=== PATIENT | male | born 1950 | race Caucasian/White ===

== ENCOUNTER 2018-01-24 14:20 | Emergency (ER) | payer BC, MEDICARE ==
[2018-01-24] MEDS ORDERED: ACETAMINOPHEN TAB 500 MG TAB PO STA (14:48)
[2018-01-24] MEDS ORDERED: SODIUM CHLORIDE 0.9% 1,000 ML IV SCH (15:00)
[2018-01-24 15:37] LABS: Basophils % (A) 0 %; Eosinophils # (A) 0.1 k/uL (0-0.7); Eosinophils % (A) 1 %; HCT 41.8 % (39.0-53.0); HGB 14.1 gm/dL (13.0-17.5); Lymphocytes # (A) 0.6 k/uL (1.0-4.8); Lymphocytes % (A) 7 %; MCH 29.8 pg (25.0-35.0); MCHC 33.8 g/dL (31.0-37.0); MCV 88.3 fL (80.0-100.0); Mean Platelet Volume 6.8; Monocytes # (A) 0.4 k/uL (0-1.0); Monocytes % (A) 4 %; Neutrophils # (A) 7.3 k/uL (1.3-7.7); Neutrophils % (A) 86 %; Platelet Count 104 k/uL (150-450); RBC 4.73 m/uL (4.30-5.90); RDW 12.5 % (11.5-15.5); WBC 8.4 k/uL (3.8-10.6)
[2018-01-24 15:55] LABS: INR 1.2 (<1.2); Partial Thromboplastin Time 23.3 sec (22.0-30.0); Prothrombin Time 11.5 sec (9.0-12.0)
[2018-01-24] MEDS ORDERED: cefTRIAXone IN SWFI 1,000 MG/10 ML SYRINGE IVP STA (15:55)
[2018-01-24 16:06] LABS: ALT 43 U/L (21-72); AST 23 U/L (17-59); Albumin 3.6 g/dL (3.5-5.0); Alkaline Phosphatase 61 U/L (38-126); Anion Gap 8 mmol/L; Blood Urea Nitrogen 23 mg/dL (9-20); Calcium 8.7 mg/dL (8.4-10.2); Carbon Dioxide 22 mmol/L (22-30); Chloride 107 mmol/L (98-107); Glucose 107 mg/dL (74-99); Sodium 137 mmol/L (137-145); Total Bilirubin 0.8 mg/dL (0.2-1.3); Total Protein 6.2 g/dL (6.3-8.2)
[2018-01-24] MEDS: SODIUM CHLORIDE 0.9% 500 ML IV SCH (16:20)
[2018-01-24] MEDS ORDERED: MORPHINE SULFATE 4 MG/ML SYRINGE IVP STA (16:29)
[2018-01-24 16:48] LABS: Amorphous Sediment,Urine Rare /hpf; Appearance,Urine Cloudy (Clear); Bilirubin,Urine Negative (Negative); Blood,Urine Small (Negative); Color,Urine Yellow; Glucose,Urine (UA) Negative (Negative); Granular Casts,Urine 4 /lpf (0); Ketones,Urine 1+ (Negative); Leukocyte Esterase,Urine Large (Negative); Mucus,Urine Many /hpf; Nitrite,Urine Negative (Negative); PH, Urine 5.5 (5.0-8.0); Protein,Urine 2+ (Negative); Specific Gravity,Urine 1.029 (1.001-1.035); Squamous Epithelial Cell,Urine <1 /hpf (0-4); WBC,Urine 61 /hpf (0-5)
[2018-01-24] MEDS ORDERED: KETOROLAC 30 MG/ML 1 ML VIAL IVP STA (17:22)
--- NOTE | 2018-01-24 17:22 | ED ---
General Adult HPI - General Chief complaint: Recheck/Abnormal Lab/Rx Stated complaint: Urogenital Time Seen by Provider: 01/24/18 14:44 Source: patient Mode of arrival: ambulatory Limitations: no limitations - History of Present Illness Initial comments: Tatiana starr is a 67-year-old male with no significant past medical history presents to the emergency department today for evaluation of fever, fatigue and urinary tract infection. Patient reports that on he began feeling unwell, he had a subjective fever and generalized fatigue. He reports that he came home from work and slept all evening and all night. On Friday he called in sick to work and slept throughout the day on Friday night his convinced him to seek care at an urgent care where he was diagnosed with a urinary tract infection and prescribed Macrobid. Patient has taken 2 doses of Macrobid but continues to feel worse fatigue and has noted that his fever is higher today than yesterday. At that time his convinced him to come to the ER for further evaluation. Patient has no history of urinary tract infection past. He 's never seen a urologist never had any urologic procedures in the past. - Related Data Home Medications Medication Instructions Recorded Confirmed Aspirin EC [Ecotrin Low Dose] 81 mg PO HS 01/24/18 01/24/18 Metoprolol Succinate (ER) [Toprol 25 mg PO HS 01/24/18 01/24/18 XL] Niacin [Niacin ER] 500 mg PO HS 01/24/18 01/24/18 Previous Rx's Medication Instructions Recorded Sulfamethox-Tmp 800-160Mg [Bactrim 1 tab PO Q12HR #14 tab 01/24/18 DS 800-160 mg] Allergies Allergy/AdvReac Type Severity Reaction Status Date / Time codeine Allergy Itching Verified 01/24/18 16:59 Review of Systems ROS Statement: Those systems with pertinent positive or pertinent negative responses have been documented in the HPI. ROS Other: All systems not noted in ROS Statement are negative. Constitutional: Reports: fever, chills Eyes: Denies: eye pain ENT: Denies: throat pain Respiratory: Denies: cough, dyspnea Cardiovascular: Denies: chest pain, palpitations Endocrine: Reports: fatigue Gastrointestinal: Denies: abdominal pain, nausea, vomiting, diarrhea, constipation Past Medical History Past Medical History: Atrial Fibrillation, Hyperlipidemia, Hypertension History of Any Multi-Drug Resistant Organisms: None Reported Past Surgical History: Tonsillectomy Additional Past Surgical History / Comment(s): varicose vein Past Psychological History: No Psychological Hx Reported Smoking Status: Former smoker Past Alcohol Use History: None Reported Past Drug Use History: None Reported General Exam Limitations: no limitations Course Vital Signs 01/24/18 01/24/18 01/24/18 14:23 16:25 18:37 Temperature 101.0 F H 99.3 F Pulse Rate 95 78 71 Respiratory 18 18 16 Rate Blood Pressure 109/73 105/54 115/63 O2 Sat by Pulse 96 96 97 Oximetry - Reevaluation(s) Reevaluation #1: Patient was reevaluated, reports feeling better after IV fluids and Rocephin. Heart rate has improved to the mid 60s. Patient remains febrile with a temperature of 100.4 orally. Toradol was given. 01/24/18 17:41 Medical Decision Making - Medical Decision Making Patient seen and evaluated, history of obtained from patient and Previously healthy patient diagnosed urinary tract infection yesterday, prescribed Macrobid. Today he is febrile, tachycardic and feeling fatigued and generalized body aches Vital signs were reviewed, patient febrile, relative tachycardia with a heart rate of 95 but the patient is on Lopressor. At this time I will pursue a sepsis workup Labs were unremarkable, no leukocytosis, no acute kidney injury, urinalysis is consistent with a urinary tract infection IV Rocephin was ordered Tylenol was given for fever Patient was reevaluated after IV fluids, Rocephin and Tylenol. Patient reports that he significantly more comfortable at this time. He does feel that antibiotics are working. His heart rate has improved. His fever has improved significantly. He does still have some mild bilateral flank pain. Patient does have normal kidney functions of Toradol was ordered. Patient was reevaluated shortly after the Toradol was administered. He reports feeling much better at this time, I discussed with the patient and his at bedside option for admitting the patient for urinary tract infection versus discharge home with oral antibiotics. He do not feel Macrobid was an appropriate choice and that antibiotics will be changed. Patient did receive Rocephin in the ER and will be discharged home on Bactrim. She expressed concern that his mother developed recurrent urinary tract infections eventually resulting in sepsis and her . Patient does have a lot of anxiety regarding the diagnosis of urinary tract infection. I advised the patient that at this time a single urinary tract infection and improvement of his vital signs after fluids is very reassuring sign. I can't admit the patient to the hospital if he feels further workup is necessary. Patient expresses concern that being in the hospital just expose him 2 more germs. Patient would prefer discharge home. I did advise the patient that there was some hematuria noted on his urinalysis, advised that he needs to follow up with his primary care physician for repeat urinalysis and if he has persistent hematuria he needs evaluation by urology. Patient does have a distant history of smoking, advised him that smoking is a risk factor for development of bladder cancer though with this being a single episode of hematuria in the setting of a urinary tract infection bladder cancers not my high suspicion. Patient's breast understanding of this. All questions pertaining to care were answered best my ability the patient was discharged home - Lab Data Result diagrams: 01/24/18 15:23 01/24/18 15:23 Lab Results 01/24/18 01/24/18 01/24/18 Range/Units 15:23 15:23 15:23 WBC 8.4 (3.8-10.6) k/uL RBC 4.73 (4.30-5.90) m/uL Hgb 14.1 (13.0-17.5) gm/dL Hct 41.8 (39.0-53.0) % MCV 88.3 (80.0-100.0) fL MCH 29.8 (25.0-35.0) pg MCHC 33.8 (31.0-37.0) g/dL RDW 12.5 (11.5-15.5) % Plt Count 104 L (150-450) k/uL Neutrophils % 86 % Lymphocytes % 7 % Monocytes % 4 % Eosinophils % 1 % Basophils % 0 % Neutrophils # 7.3 (1.3-7.7) k/uL Lymphocytes # 0.6 L (1.0-4.8) k/uL Monocytes # 0.4 (0-1.0) k/uL Eosinophils # 0.1 (0-0.7) k/uL Basophils # 0.0 (0-0.2) k/uL PT (9.0-12.0) sec INR (<1.2) APTT (22.0-30.0) sec Sodium 137 (137-145) mmol/L Potassium 4.0 (3.5-5.1) mmol/L Chloride 107 (98-107) mmol/L Carbon Dioxide 22 (22-30) mmol/L Anion Gap 8 mmol/L BUN 23 H (9-20) mg/dL Creatinine 0.80 (0.66-1.25) mg/dL Est GFR (CKD-EPI)AfAm >90 (>60 ml/min/1.73 sqM) Est GFR (CKD-EPI)NonAf >90 (>60 ml/min/1.73 sqM) Glucose 107 H (74-99) mg/dL Plasma Lactic Acid [place] 0.6 L (0.7-2.0) mmol/L Calcium 8.7 (8.4-10.2) mg/dL Total Bilirubin 0.8 (0.2-1.3) mg/dL AST 23 (17-59) U/L ALT 43 (21-72) U/L Alkaline Phosphatase 61 (38-126) U/L Total Protein 6.2 L (6.3-8.2) g/dL Albumin 3.6 (3.5-5.0) g/dL Urine Color Urine Appearance (Clear) Urine pH (5.0-8.0) Ur Specific [place] (1.001-1.035) Urine Protein (Negative) Urine Glucose (UA) (Negative) Urine Ketones (Negative) Urine Blood (Negative) Urine Nitrite (Negative) Urine Bilirubin (Negative) Urine Urobilinogen (<2.0) mg/dL Ur Leukocyte Esterase (Negative) Urine WBC (0-5) /hpf Ur Squamous Epith Cells (0-4) /hpf Amorphous Sediment (None) /hpf Granular Casts (0) /lpf Urine Mucus (None) /hpf 01/24/18 01/24/18 Range/Units 15:23 16:20 WBC (3.8-10.6) k/uL RBC (4.30-5.90) m/uL Hgb (13.0-17.5) gm/dL Hct (39.0-53.0) % MCV (80.0-100.0) fL MCH (25.0-35.0) pg MCHC (31.0-37.0) g/dL RDW (11.5-15.5) % Plt Count (150-450) k/uL Neutrophils % % Lymphocytes % % Monocytes % % Eosinophils % % Basophils % % Neutrophils # (1.3-7.7) k/uL Lymphocytes # (1.0-4.8) k/uL Monocytes # (0-1.0) k/uL Eosinophils # (0-0.7) k/uL Basophils # (0-0.2) k/uL PT 11.5 (9.0-12.0) sec INR 1.2 H (<1.2) APTT 23.3 (22.0-30.0) sec Sodium (137-145) mmol/L Potassium (3.5-5.1) mmol/L Chloride (98-107) mmol/L Carbon Dioxide (22-30) mmol/L Anion Gap mmol/L BUN (9-20) mg/dL Creatinine (0.66-1.25) mg/dL Est GFR (CKD-EPI)AfAm (>60 ml/min/1.73 sqM) Est GFR (CKD-EPI)NonAf (>60 ml/min/1.73 sqM) Glucose (74-99) mg/dL Plasma Lactic Acid [place] (0.7-2.0) mmol/L Calcium (8.4-10.2) mg/dL Total Bilirubin (0.2-1.3) mg/dL AST (17-59) U/L ALT (21-72) U/L Alkaline Phosphatase (38-126) U/L Total Protein (6.3-8.2) g/dL Albumin (3.5-5.0) g/dL Urine Color Yellow Urine Appearance Cloudy (Clear) Urine pH 5.5 (5.0-8.0) Ur Specific [place] 1.029 (1.001-1.035) Urine Protein 2+ H (Negative) Urine Glucose (UA) Negative (Negative) Urine Ketones 1+ H (Negative) Urine Blood Small H (Negative) Urine Nitrite Negative (Negative) Urine Bilirubin Negative (Negative) Urine Urobilinogen 2.0 (<2.0) mg/dL Ur Leukocyte Esterase Large H (Negative) Urine WBC 61 H (0-5) /hpf Ur Squamous Epith Cells <1 (0-4) /hpf Amorphous Sediment Rare H (None) /hpf Granular Casts 4 (0) /lpf Urine Mucus Many H (None) /hpf Disposition Clinical Impression: UTI (urinary tract infection) Disposition: HOME SELF-CARE Condition: Good Instructions: Urinary Tract Infection in Men (ED) Prescriptions: Sulfamethox-Tmp 800-160Mg [Bactrim DS 800-160 mg] 1 tab PO Q12HR #14 tab Is patient prescribed a controlled substance at d/c from ED?: No Referrals: Jasiel Steiner DO [Primary Care Provider] - 1-2 days Time of Disposition: 18:21
[2018-01-24 18:39] VITALS: BP 115/63; PULSE 71; RESP 16; TEMP 99.3
== END 2018-01-24 18:39 | disposition home or self-care (01) ==
LOC: EC 14:20
DX: N39.0 Urinary tract infection, site not specified (principal); R53.83 Other fatigue; R00.0 Tachycardia, unspecified; I10 Essential (primary) hypertension; Z87.891 Personal history of nicotine dependence; Z79.82 Long term (current) use of aspirin; Z79.899 Other long term (current) drug therapy; Z88.5 Allergy status to narcotic agent
CPT/HCPCS: 36415; 93005; 80053; 83605; 85025; 85610; 85730; 81001; 87040; 87086; 99283; 96374; 96375; 96361 ×2; J0696; J1885

== ENCOUNTER → 2018-08-07 | Outpatient (CLI) | payer BC ==
--- NOTE | 2018-08-07 08:01 | MR ---
EXAMINATION TYPE: MR lumbar spine wo con DATE OF EXAM: 08/07/2018 COMPARISON: Lumbar spine x-ray June 12, 2016. HISTORY: Right-sided radicular pain per order. Low back pain for 3 months into right buttocks per pat ient. TECHNIQUE: Multiplanar, multisequence imaging of the lumbar spine is performed without IV contrast. FINDINGS: Sagittal images of the lumbar spine show vertebral body heights and alignment to appear sat isfactory. Multilevel disc desiccation is seen. There is mild multilevel disc space narrowing. No fraire spicious posterior disc herniations are present. The conus medullaris is normal in position and signa l ending at superior L1 level. The bone marrow signal intensity is within normal limits. Mild multil evel anterior spurring is seen. Axial images beginning at labeled T12-L1 level which is felt within normal limits. Axial images at L1 -L2, L2-L3, and L3-L4 levels are all felt within normal limits. Axial images at the L4-L5 level show mild facet degenerative changes bilaterally. There is mild broad disc bulge with tiny central disc protrusion minimally effacing anterior thecal sac, bilateral neura l foramina are patent. Axial images at the L5-S1 level show mild to moderate facet degenerative changes bilaterally. There i s left lateral spurring felt present. Spinal canal is preserved. Bilateral neural foramina are patent . There is partial visualization of a round T2 hyperintense at least 1.3 cm lesion left kidney axial im age 29 favoring simple cyst. Additional smaller central parapelvic cysts are felt present left kidney for reference axial image 22. IMPRESSION: Some mild multilevel degenerative changes in the lumbar spine as detailed above. No suspi cious focal disc herniation seen to account for patient's right-sided radiculopathy type symptoms.
== END | disposition home or self-care (01) ==
LOC: RADMRIMAIN 06:02
PROVIDERS: ATTEND Internal Medicine Cardiovascular Disease
DX: M47.26 Other spondylosis with radiculopathy, lumbar region (principal)
CPT/HCPCS: 72148

== ENCOUNTER → 2018-09-15 | Outpatient (CLI) | payer BC | LOC: LABWHC1 10:04 | PROVIDERS: ATTEND Urology | DX: R97.21 Rising PSA following treatment for malignant neoplasm of prostate (principal) | CPT/HCPCS: 36415; 84153 ==

== ENCOUNTER 2020-09-24 22:19 | Emergency (ER) | payer MEDICARE, BC ==
[2020-09-24] MEDS ORDERED: SODIUM CHLORIDE 0.9% 1,000 ML IV STA (22:30)
[2020-09-24] MEDS ORDERED: MORPHINE SULFATE 4 MG/ML SYRINGE IV STA (22:30)
--- NOTE | 2020-09-24 22:32 | ED ---
Chest Pain HPI - General Chief Complaint: Chest Pain Stated Complaint: chest pain, upper back pain Time Seen by Provider: 09/24/20 22:30 Source: patient Mode of arrival: wheelchair Limitations: no limitations - Related Data Home Medications Medication Instructions Recorded Confirmed Aspirin EC [Ecotrin Low Dose] 81 mg PO HS 01/24/18 01/24/18 Metoprolol Succinate (ER) [Toprol 25 mg PO HS 01/24/18 01/24/18 XL] Niacin [Niacin ER] 500 mg PO HS 01/24/18 01/24/18 Previous Rx's Medication Instructions Recorded Sulfamethox-Tmp 800-160Mg [Bactrim 1 tab PO Q12HR #14 tab 01/24/18 DS 800-160 mg] Allergies Allergy/AdvReac Type Severity Reaction Status Date / Time codeine Allergy Itching Verified 09/24/20 22:28 Review of Systems ROS Statement: Those systems with pertinent positive or pertinent negative responses have been documented in the HPI. ROS Other: All systems not noted in ROS Statement are negative. EKG Findings - EKG Comments: EKG Findings:: EKG shows sinus rhythm 64, ID [id number] QRS 110 QTc 435 Past Medical History Past Medical History: Atrial Fibrillation, Hyperlipidemia, Hypertension History of Any Multi-Drug Resistant Organisms: None Reported Past Surgical History: Tonsillectomy Additional Past Surgical History / Comment(s): varicose vein Past Psychological History: No Psychological Hx Reported Smoking Status: Former smoker Past Alcohol Use History: None Reported Past Drug Use History: None Reported General Exam Limitations: no limitations Course Vital Signs 09/24/20 09/24/20 09/25/20 22:25 22:30 00:10 Temperature 98.0 F Pulse Rate 72 72 Pulse Rate [ 74 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
[2020-09-24 23:34] LABS: Basophils % (A) 1 %; Eosinophils # (A) 0.2 k/uL (0-0.7); Eosinophils % (A) 3 %; HCT 41.8 % (39.0-53.0); HGB 14.5 gm/dL (13.0-17.5); Lymphocytes # (A) 1.5 k/uL (1.0-4.8); Lymphocytes % (A) 26 %; MCH 30.3 pg (25.0-35.0); MCHC 34.6 g/dL (31.0-37.0); MCV 87.6 fL (80.0-100.0); Monocytes # (A) 0.4 k/uL (0-1.0); Monocytes % (A) 8 %; Neutrophils # (A) 3.5 k/uL (1.3-7.7); Neutrophils % (A) 61 %; Platelet Count 141 k/uL (150-450); RBC 4.77 m/uL (4.30-5.90); RDW 13.1 % (11.5-15.5); WBC 5.8 k/uL (3.8-10.6)
[2020-09-24 23:51] LABS: ALT 26 U/L (4-49); AST 29 U/L (17-59); African American GFR (CKD) >90 (>60 ml/min/1.73 sqM); Albumin 3.9 g/dL (3.5-5.0); Alkaline Phosphatase 60 U/L (38-126); Anion Gap 8 mmol/L; Blood Urea Nitrogen 22 mg/dL (9-20); Carbon Dioxide 24 mmol/L (22-30); Chloride 105 mmol/L (98-107); Creatine Kinase 258 U/L (55-170); Glucose 159 mg/dL (74-99); Lipase 69 U/L (23-300); Magnesium 1.7 mg/dL (1.6-2.3); Non-African American GFR(CKD) >90 (>60 ml/min/1.73 sqM); Potassium 3.8 mmol/L (3.5-5.1); Sodium 137 mmol/L (137-145); Total Bilirubin 0.4 mg/dL (0.2-1.3); Total Protein 6.4 g/dL (6.3-8.2)
[2020-09-25 00:04] LABS: D-Dimer 0.31 mg/L FEU (<0.60); Prothrombin Time 10.4 sec (9.0-12.0)
[2020-09-25 00:14] LABS: Partial Thromboplastin Time 21.8 sec (22.0-30.0)
--- NOTE | 2020-09-25 00:33 | CT ---
EXAMINATION TYPE: CT angio chest DATE OF EXAM: 09/25/2020 COMPARISON: None HISTORY: Chest Pain, R/O PE CT DLP: 865.70 mGycm Automated exposure control for dose reduction was used. CONTRAST: Performed with IV Contrast, patient injected with 100 mL of Isovue 370. There are 3-D post processed images. The lungs are clear of consolidation. There is no evidence of a pulmonary mass. There is no pleural e ffusion. There is no pericardial effusion. Heart size is normal. There is no mediastinal adenopathy. There are no hilar masses. Thoracic aorta is intact. There is no aneurysm or dissection. There is normal contrast opacification of the pulmonary arteries. There are n o filling defects. The bony thorax is intact. There is no compression fracture. Sternum is intact. Ga llbladder is slightly enlarged and measures 4.7 cm. IMPRESSION: No evidence of pulmonary embolism. Large gallbladder that could relate to cholecystitis or gallbladder dysfunction.
[2020-09-25 01:12] VITALS: BP 137/90; PULSE 63; RESP 18; TEMP 99.1
== END 2020-09-25 01:11 | disposition other institution (70) ==
LOC: EC 22:19
DX: R07.89 Other chest pain (principal); K80.50 Calculus of bile duct without cholangitis or cholecystitis without obstruction
CPT/HCPCS: 36415; 93005; 85379; 83880; 80053; 82550; 83690; 83735; 84484; 85025; 85610; 85730; 71275; 99285; Q9967

== ENCOUNTER 2020-11-19 10:54 | Inpatient (IN) | payer MEDICARE, BC ==
[2020-11-19] MEDS ORDERED: SODIUM CHLORIDE 0.9% 500 ML 500 ML IV STA (11:13)
[2020-11-19] MEDS ORDERED: ONDANSETRON 4 MG/2 ML VIAL IVP STA (11:13)
[2020-11-19] MEDS ORDERED: KETOROLAC 15 MG/ML 1 ML VIAL IVP STA (11:13)
[2020-11-19] MEDS ORDERED: SODIUM CHLORIDE 0.9% 1,000 ML IV STA (11:13)
[2020-11-19] MEDS ORDERED: ACETAMINOPHEN TAB 325 MG TAB PO STA (11:14)
--- NOTE | 2020-11-19 11:29 | ED ---
Abdominal Pain HPI - General Source: patient, RN notes reviewed Mode of arrival: ambulatory Limitations: no limitations <Joe Hernandez - Last Filed: 11/19/20 11:27> <Richi Gonsalves - Last Filed: 11/19/20 14:04> - General Chief Complaint: Abdominal Pain Stated Complaint: Back & Abd pain Time Seen by Provider: 11/19/20 11:04 - History of Present Illness Initial Comments: 70-year-old male presents emergency Department with chief complaint of upper abdominal pain. Patient states that pain started on Friday and initially that was given result states that hasn't states it's worsen. He does admit to slight nausea no vomiting no chest pain or shortness breath denies any prior abdominal surgeries no dysuria no hematuria denies any change in bowel habits. Patient reports no fever at home for current temp 100.8. Patient states his here proximal one month ago with some her symptoms but states when he shortly ER the pain resolves so he figured he would wait this out. (Joe Hernandez) - Related Data Home Medications Medication Instructions Recorded Confirmed Aspirin EC [Ecotrin Low Dose] 81 mg PO HS 01/24/18 11/19/20 Atorvastatin Calcium [Lipitor] 10 mg PO HS 11/19/20 11/19/20 Meloxicam [Mobic] 15 mg PO HS 11/19/20 11/19/20 Niacin [Niaspan] 500 mg PO HS 11/19/20 11/19/20 Allergies Allergy/AdvReac Type Severity Reaction Status Date / Time codeine Allergy Itching Verified 11/19/20 13:54 Review of Systems ROS Other: All systems not noted in ROS Statement are negative. <Joe Hernandez - Last Filed: 11/19/20 11:27> ROS Other: All systems not noted in ROS Statement are negative. <Richi Gonsalves - Last Filed: 11/19/20 14:04> ROS Statement: Those systems with pertinent positive or pertinent negative responses have been documented in the HPI. Past Medical History Past Medical History: Atrial Fibrillation, Hyperlipidemia, Hypertension Additional Past Medical History / Comment(s): prostate cancer History of Any Multi-Drug Resistant Organisms: None Reported Past Surgical History: Tonsillectomy Additional Past Surgical History / Comment(s): varicose vein Past Psychological History: No Psychological Hx Reported Smoking Status: Former smoker Past Alcohol Use History: None Reported Past Drug Use History: None Reported <Joe Hernandez - Last Filed: 11/19/20 11:27> General Exam Limitations: no limitations General appearance: alert, in no apparent distress Head exam: Present: atraumatic, normocephalic, normal inspection Respiratory exam: Present: normal lung sounds bilaterally. Absent: respiratory distress, wheezes, rales, rhonchi, stridor Cardiovascular Exam: Present: regular rate, normal rhythm, normal heart sounds. Absent: systolic murmur, diastolic murmur, rubs, gallop, clicks GI/Abdominal exam: Present: soft, tenderness (Upper abdominal epigastric to right-sided), normal bowel sounds. Absent: distended, guarding, rebound, rigid Back exam: Absent: CVA tenderness (R), CVA tenderness (L) Neurological exam: Present: alert Skin exam: Present: warm, dry, intact, normal color. Absent: rash <Joe Hernandez Rolando - Last Filed: 11/19/20 11:27> Course Vital Signs 11/19/20 11/19/20 11/19/20 10:58 11:47 13:36 Temperature 100.8 F H 99.7 F H Pulse Rate 89 77 84 Respiratory 18 18 18 Rate Blood Pressure 134/72 125/72 117/66 O2 Sat by Pulse 96 97 97 Oximetry Medical Decision Making - Lab Data Result diagrams: 11/19/20 11:23 11/19/20 11:23 <Richi Gonsalves - Last Filed: 11/19/20 14:04> - Medical Decision Making Certain 62-year-old male with a recurrent episode of epigastric pain low-grade fever, leukocytosis. Ultrasound performed which shows a distended gallbladder with common wall 0.3 cm. There is concern for possible cholecystitis although there is no gallstones, no transaminitis. Patient has white blood cell count with shift. He has low-grade fever. He is given a dose of antibiotics in the emergency department. Case discussed both with the admitting physician and Dr. Malik covering for general surgery. HIDA scan has been ordered. (Richi Gonsalves) - Lab Data Lab Results 11/19/20 11/19/20 11/19/20 Range/Units 11:23 11:23 11:23 WBC 11.3 H (3.8-10.6) k/uL RBC 4.88 (4.30-5.90) m/uL Hgb 15.2 (13.0-17.5) gm/dL Hct 42.8 (39.0-53.0) % MCV 87.6 (80.0-100.0) fL MCH 31.2 (25.0-35.0) pg MCHC 35.6 (31.0-37.0) g/dL RDW 12.6 (11.5-15.5) % Plt Count 146 L (150-450) k/uL MPV 7.4 Neutrophils % 81 % Lymphocytes % 9 % Monocytes % 8 % Eosinophils % 1 % Basophils % 0 % Neutrophils # 9.2 H (1.3-7.7) k/uL Lymphocytes # 1.0 (1.0-4.8) k/uL Monocytes # 0.9 (0-1.0) k/uL Eosinophils # 0.1 (0-0.7) k/uL Basophils # 0.0 (0-0.2) k/uL Sodium 138 (137-145) mmol/L Potassium 4.2 (3.5-5.1) mmol/L Chloride 106 (98-107) mmol/L Carbon Dioxide 24 (22-30) mmol/L Anion Gap 8 mmol/L BUN 16 (9-20) mg/dL Creatinine 0.68 (0.66-1.25) mg/dL Est GFR (CKD-EPI)AfAm >90 (>60 ml/min/1.73 sqM) Est GFR (CKD-EPI)NonAf >90 (>60 ml/min/1.73 sqM) Glucose 126 H (74-99) mg/dL Plasma Lactic Acid [place] (0.7-2.0) mmol/L Calcium 9.0 (8.4-10.2) mg/dL Total Bilirubin 0.8 (0.2-1.3) mg/dL AST 27 (17-59) U/L ALT 25 (4-49) U/L Alkaline Phosphatase 70 (38-126) U/L Total Protein 6.9 (6.3-8.2) g/dL Albumin 4.2 (3.5-5.0) g/dL Amylase 31 (30-110) U/L Lipase 35 (23-300) U/L Urine Color Yellow Urine Appearance Clear (Clear) Urine pH 6.5 (5.0-8.0) Ur Specific [place] 1.025 (1.001-1.035) Urine Protein Trace H (Negative) Urine Glucose (UA) Negative (Negative) Urine Ketones Negative (Negative) Urine Blood Trace H (Negative) Urine Nitrite Negative (Negative) Urine Bilirubin Negative (Negative) Urine Urobilinogen 4.0 (<2.0) mg/dL Ur Leukocyte Esterase Negative (Negative) Urine RBC 1 (0-5) /hpf Urine WBC 1 (0-5) /hpf Ur Squamous Epith Cells <1 (0-4) /hpf Hyaline Casts 1 (0-2) /lpf Urine Mucus Occasional H (None) /hpf 11/19/20 Range/Units 11:23 WBC (3.8-10.6) k/uL RBC (4.30-5.90) m/uL Hgb (13.0-17.5) gm/dL Hct (39.0-53.0) % MCV (80.0-100.0) fL MCH (25.0-35.0) pg MCHC (31.0-37.0) g/dL RDW (11.5-15.5) % Plt Count (150-450) k/uL MPV Neutrophils % % Lymphocytes % % Monocytes % % Eosinophils % % Basophils % % Neutrophils # (1.3-7.7) k/uL Lymphocytes # (1.0-4.8) k/uL Monocytes # (0-1.0) k/uL Eosinophils # (0-0.7) k/uL Basophils # (0-0.2) k/uL Sodium (137-145) mmol/L Potassium (3.5-5.1) mmol/L Chloride (98-107) mmol/L Carbon Dioxide (22-30) mmol/L Anion Gap mmol/L BUN (9-20) mg/dL Creatinine (0.66-1.25) mg/dL Est GFR (CKD-EPI)AfAm (>60 ml/min/1.73 sqM) Est GFR (CKD-EPI)NonAf (>60 ml/min/1.73 sqM) Glucose (74-99) mg/dL Plasma Lactic Acid [place] 0.7 (0.7-2.0) mmol/L Calcium (8.4-10.2) mg/dL Total Bilirubin (0.2-1.3) mg/dL AST (17-59) U/L ALT (4-49) U/L Alkaline Phosphatase (38-126) U/L Total Protein (6.3-8.2) g/dL Albumin (3.5-5.0) g/dL Amylase (30-110) U/L Lipase (23-300) U/L Urine Color Urine Appearance (Clear) Urine pH (5.0-8.0) Ur Specific [place] (1.001-1.035) Urine Protein (Negative) Urine Glucose (UA) (Negative) Urine Ketones (Negative) Urine Blood (Negative) Urine Nitrite (Negative) Urine Bilirubin (Negative) Urine Urobilinogen (<2.0) mg/dL Ur Leukocyte Esterase (Negative) Urine RBC (0-5) /hpf Urine WBC (0-5) /hpf Ur Squamous Epith Cells (0-4) /hpf Hyaline Casts (0-2) /lpf Urine Mucus (None) /hpf Disposition <Joe Hernandez - Last Filed: 11/19/20 11:27> Is patient prescribed a controlled substance at d/c from ED?: No Decision to Admit Reason: Admit from EC Decision Date: 11/19/20 Decision Time: 14:04 <Richi Gonsalves - Last Filed: 11/19/20 14:04> Clinical Impression: Abdominal pain Disposition: ADMITTED IP TO THIS HOSP Condition: Stable Referrals: Denise Felder MD [Primary Care Provider] - 1-2 days
[2020-11-19 11:31] LABS: Basophils % (A) 0 %; Eosinophils # (A) 0.1 k/uL (0-0.7); Eosinophils % (A) 1 %; HCT 42.8 % (39.0-53.0); HGB 15.2 gm/dL (13.0-17.5); Lymphocytes % (A) 9 %; MCH 31.2 pg (25.0-35.0); MCHC 35.6 g/dL (31.0-37.0); MCV 87.6 fL (80.0-100.0); Mean Platelet Volume 7.4; Monocytes # (A) 0.9 k/uL (0-1.0); Monocytes % (A) 8 %; Neutrophils # (A) 9.2 k/uL (1.3-7.7); Neutrophils % (A) 81 %; Platelet Count 146 k/uL (150-450); RBC 4.88 m/uL (4.30-5.90); RDW 12.6 % (11.5-15.5); WBC 11.3 k/uL (3.8-10.6)
[2020-11-19 11:49] LABS: ALT 25 U/L (4-49); AST 27 U/L (17-59); African American GFR (CKD) >90 (>60 ml/min/1.73 sqM); Albumin 4.2 g/dL (3.5-5.0); Alkaline Phosphatase 70 U/L (38-126); Amylase 31 U/L (30-110); Anion Gap 8 mmol/L; Blood Urea Nitrogen 16 mg/dL (9-20); Carbon Dioxide 24 mmol/L (22-30); Chloride 106 mmol/L (98-107); Glucose 126 mg/dL (74-99); Lipase 35 U/L (23-300); Non-African American GFR(CKD) >90 (>60 ml/min/1.73 sqM); Potassium 4.2 mmol/L (3.5-5.1); Sodium 138 mmol/L (137-145); Total Bilirubin 0.8 mg/dL (0.2-1.3); Total Protein 6.9 g/dL (6.3-8.2)
[2020-11-19 12:03] LABS: Appearance,Urine Clear (Clear); Bilirubin,Urine Negative (Negative); Blood,Urine Trace (Negative); Color,Urine Yellow; Glucose,Urine (UA) Negative (Negative); Hyaline Casts,Urine 1 /lpf (0-2); Ketones,Urine Negative (Negative); Leukocyte Esterase,Urine Negative (Negative); Mucus,Urine Occasional /hpf; Nitrite,Urine Negative (Negative); PH, Urine 6.5 (5.0-8.0); Protein,Urine Trace (Negative); RBC,Urine 1 /hpf (0-5); Specific Gravity,Urine 1.025 (1.001-1.035); Squamous Epithelial Cell,Urine <1 /hpf (0-4); WBC,Urine 1 /hpf (0-5)
--- NOTE | 2020-11-19 12:58 | US ---
EXAMINATION TYPE: US gallbladder DATE OF EXAM: 11/19/2020 COMPARISON: CT CLINICAL HISTORY: pain. Pt states feeling gassy and epigastric pain EXAM MEASUREMENTS: Liver Length: 18.2 cm Gallbladder Wall: 0.3 cm CBD: 0.6 cm Right Kidney: 12.5 x 6.0 x 5.7 cm Large pt body habitus, very gassy Pancreas: Obscured by bowel gas Liver: Only visualized intercostally, visualized portions appeared wnl Gallbladder: Lumen clear, appeared distended, similar in prior CT, all thickness upper limits of nor mal Evidence for sonographic Santiago's sign: No CBD: wnl Right Kidney: wnl IMPRESSION: Gallbladder is distended with no obvious gallstones. Correlate clinically.
[2020-11-19] MEDS ORDERED: PIPERACILLIN-TAZOBACTAM 3.375 GM in SODIUM CHLORIDE 0.9% 100 ML IVPB STA (13:35)
[2020-11-19] MEDS ORDERED: ONDANSETRON 4 MG/2 ML VIAL IVP PRN (14:01)
[2020-11-19] MEDS ORDERED: NALOXONE 0.4 MG/ML 1 ML VIAL IV PRN (14:01)
[2020-11-19] MEDS: SODIUM CHLORIDE 0.9% 1,000 ML IV SCH ×2 (14:12→19:36)
[2020-11-19] MEDS ORDERED: ACETAMINOPHEN TAB 325 MG TAB PO PRN (17:19)
[2020-11-19] MEDS: HYDROmorphone 0.5 MG/0.5 ML SYRINGE IVP PRN (19:37)
[2020-11-20] MEDS: PIPERACILLIN-TAZOBACTAM 3.375 GM in SODIUM CHLORIDE 0.9% 100 ML IVPB SCH ×3 (10:07→23:57)
[2020-11-20] MEDS: SODIUM CHLORIDE 0.9% 1,000 ML IV SCH ×3 (10:19→22:28)
--- NOTE | 2020-11-20 11:11 | P.GSCN ---
<Tonie Howard - Last Filed: 11/20/20 10:56> History of Present Illness Consult date: 11/20/20 History of present illness: CHIEF COMPLAINT: Abdominal pain HISTORY OF PRESENT ILLNESS: This is a 70-year-old male with a known past medical history of hypertension, hyperlipidemia and a single episode of atrial fibrillation and he is not on any anticoagulation. Denies any surgical history. Patient came into the hospital with complaints of middle upper back pain and abdominal pain. He reports that it feels like there is a bubble sitting in the center of his stomach and is having back discomfort. He initially rated his pain 8 out of 10. The pain has improved since admission. Patient reports that his symptoms started on Friday evening after eating stirfry that was spicy. Symptoms continued to worsen. He had one episode like this about 2 months ago and had come in to the ER ago and told that it may have been a gallbladder attack. Patient did have a fever on admission. His T-max is 101.8. WBC elevated at 11.3. Abdominal ultrasound showing that the gallbladder is distended with no obvious gallstones. Patient denies any nausea or vomiting. He had been having chills and sweats. He denies any change in bowel habits. Patient denies any history of peptic ulcer disease. Patient has never had an EGD in the past. PAST MEDICAL HISTORY: See list. PAST SURGICAL HISTORY: See list. MEDICATIONS: See list. ALLERGIES: See list. SOCIAL HISTORY: No illicit drug use. Patient doesn't prior history of smoking and quit several years ago. Denies any alcohol use. REVIEW OF SYSTEMS: CONSTITUTIONAL: Denies fever or chills. HEENT: Denies blurred vision, vision changes, or eye pain. Denies hemoptysis CARDIOVASCULAR: Denies chest pain or pressure. RESPIRATORY: No shortness of breath. GASTROINTESTINAL: See HPI for pertinent findings HEMATOLOGIC: Denies bleeding disorders. GENITOURINARY: Denies any blood in urine or increased urinary frequency. SKIN: Denies pruitis. Denies rash. PHYSICAL EXAM: VITAL SIGNS: Reviewed GENERAL: Well-developed in no acute distress. HEENT: No sclera icterus. Extraocular movements grossly intact. Moist buccal mucosa. Head is atraumatic, normocephalic. No nasal drainage. ABDOMEN: Soft. Nondistended. Tenderness in the epigastric upper abdomen area with palpation. NEUROLOGIC: Alert and oriented. Cranial nerves II through XII grossly intact. LABORATORY DATA: Labs for today are pending. Labs from 11/19/2020 WBC 11.3 hemoglobin 15.2+146 creatinine 0.68 lactic 0.7 LFTs are normal lipase is normal Urinalysis no evidence of infection COVID-19 not detected IMAGING: Abdominal ultrasound showing that the gallbladder is distended with no obvious gallstones. ASSESSMENT: 1. Epigastric abdominal pain and mid back pain with abdominal ultrasound showing distended gallbladder PLAN: -Follow up on HIDA scan results -Computed tomography scan abdomen and pelvis with contrast ordered -Continue IV fluids -Continue IV antibiotics -Continue pain medication and antiemetics as needed -Add IV Protonix -Add DVT prophylaxis subcu heparin -Further recommendations forthcoming per surgeon Thank you for this consultation Physician Rock Worker note has been reviewed by physician. Signing provider agrees with the documented findings, assessment, and plan of care. Past Medical History Past Medical History: Atrial Fibrillation, Hyperlipidemia, Hypertension Additional Past Medical History / Comment(s): prostate cancer History of Any Multi-Drug Resistant Organisms: None Reported Past Surgical History: Tonsillectomy Additional Past Surgical History / Comment(s): varicocele Past Psychological History: No Psychological Hx Reported Smoking Status: Former smoker Past Alcohol Use History: None Reported Past Drug Use History: None Reported Medications and Allergies Home Medications Medication Instructions Recorded Confirmed Type Aspirin EC [Ecotrin Low Dose] 81 mg PO HS 01/24/18 11/19/20 History Atorvastatin Calcium [Lipitor] 10 mg PO HS 11/19/20 11/19/20 History Meloxicam [Mobic] 15 mg PO HS 11/19/20 11/19/20 History Niacin [Niaspan] 500 mg PO HS 11/19/20 11/19/20 History Allergies Allergy/AdvReac Type Severity Reaction Status Date / Time codeine Allergy Itching Verified 11/19/20 13:54 Surgical - Exam Vital Signs Temp Pulse Resp BP Pulse Ox 100.8 F H 89 18 134/72 96 11/19/20 10:58 11/19/20 10:58 11/19/20 10:58 11/19/20 10:58 11/19/20 10:58 Results - Labs 11/19/20 11:23 11/19/20 11:23 Abnormal Lab Results - Last 24 Hours (Table) 11/19/20 11/19/20 11/19/20 Range/Units 11:23 11:23 11:23 WBC 11.3 H (3.8-10.6) k/uL Plt Count 146 L (150-450) k/uL Neutrophils # 9.2 H (1.3-7.7) k/uL Glucose 126 H (74-99) mg/dL Urine Protein Trace H (Negative) Urine Blood Trace H (Negative) Urine Mucus Occasional H (None) /hpf Diabetes panel 11/19/20 Range/Units 11:23 Sodium 138 (137-145) mmol/L Potassium 4.2 (3.5-5.1) mmol/L Chloride 106 (98-107) mmol/L Carbon Dioxide 24 (22-30) mmol/L BUN 16 (9-20) mg/dL Creatinine 0.68 (0.66-1.25) mg/dL Glucose 126 H (74-99) mg/dL Calcium 9.0 (8.4-10.2) mg/dL AST 27 (17-59) U/L ALT 25 (4-49) U/L Alkaline Phosphatase 70 (38-126) U/L Total Protein 6.9 (6.3-8.2) g/dL Albumin 4.2 (3.5-5.0) g/dL Calcium panel 11/19/20 Range/Units 11:23 Calcium 9.0 (8.4-10.2) mg/dL Albumin 4.2 (3.5-5.0) g/dL Pituitary panel 11/19/20 Range/Units 11:23 Sodium 138 (137-145) mmol/L Potassium 4.2 (3.5-5.1) mmol/L Chloride 106 (98-107) mmol/L Carbon Dioxide 24 (22-30) mmol/L BUN 16 (9-20) mg/dL Creatinine 0.68 (0.66-1.25) mg/dL Glucose 126 H (74-99) mg/dL Calcium 9.0 (8.4-10.2) mg/dL Adrenal panel 11/19/20 Range/Units 11:23 Sodium 138 (137-145) mmol/L Potassium 4.2 (3.5-5.1) mmol/L Chloride 106 (98-107) mmol/L Carbon Dioxide 24 (22-30) mmol/L BUN 16 (9-20) mg/dL Creatinine 0.68 (0.66-1.25) mg/dL Glucose 126 H (74-99) mg/dL Calcium 9.0 (8.4-10.2) mg/dL Total Bilirubin 0.8 (0.2-1.3) mg/dL AST 27 (17-59) U/L ALT 25 (4-49) U/L Alkaline Phosphatase 70 (38-126) U/L Total Protein 6.9 (6.3-8.2) g/dL Albumin 4.2 (3.5-5.0) g/dL <Landen Malik - Last Filed: 11/20/20 14:06> History of Present Illness History of present illness: As above. Patient down for CAT scan currently. HIDA scan shows nonvisualization of the gallbladder. CAT scan was ordered this morning after the patient was noted to have fevers which would be atypical for acute cholecystitis. If CAT scan shows no other abnormalities Will proceed with laparoscopic, possible open cholecystectomy tomorrow. Surgical - Exam Vital Signs Temp Pulse Resp BP Pulse Ox 100.8 F H 89 18 134/72 96 11/19/20 10:58 11/19/20 10:58 11/19/20 10:58 11/19/20 10:58 11/19/20 10:58 Results - Labs 11/20/20 11:07 11/20/20 11:07 Abnormal Lab Results - Last 24 Hours (Table) 11/20/20 11/20/20 Range/Units 11:07 11:07 Plt Count 132 L (150-450) k/uL Chloride 109 H (98-107) mmol/L Total Protein 6.0 L (6.3-8.2) g/dL Albumin 3.4 L (3.5-5.0) g/dL Diabetes panel 11/20/20 Range/Units 11:07 Sodium 138 (137-145) mmol/L Potassium 4.0 (3.5-5.1) mmol/L Chloride 109 H (98-107) mmol/L Carbon Dioxide 22 (22-30) mmol/L BUN 18 (9-20) mg/dL Creatinine 0.73 (0.66-1.25) mg/dL Glucose 82 (74-99) mg/dL Calcium 8.4 (8.4-10.2) mg/dL AST 25 (17-59) U/L ALT 24 (4-49) U/L Alkaline Phosphatase 78 (38-126) U/L Total Protein 6.0 L (6.3-8.2) g/dL Albumin 3.4 L (3.5-5.0) g/dL Calcium panel 11/20/20 Range/Units 11:07 Calcium 8.4 (8.4-10.2) mg/dL Albumin 3.4 L (3.5-5.0) g/dL Pituitary panel 11/20/20 Range/Units 11:07 Sodium 138 (137-145) mmol/L Potassium 4.0 (3.5-5.1) mmol/L Chloride 109 H (98-107) mmol/L Carbon Dioxide 22 (22-30) mmol/L BUN 18 (9-20) mg/dL Creatinine 0.73 (0.66-1.25) mg/dL Glucose 82 (74-99) mg/dL Calcium 8.4 (8.4-10.2) mg/dL Adrenal panel 11/20/20 Range/Units 11:07 Sodium 138 (137-145) mmol/L Potassium 4.0 (3.5-5.1) mmol/L Chloride 109 H (98-107) mmol/L Carbon Dioxide 22 (22-30) mmol/L BUN 18 (9-20) mg/dL Creatinine 0.73 (0.66-1.25) mg/dL Glucose 82 (74-99) mg/dL Calcium 8.4 (8.4-10.2) mg/dL Total Bilirubin 1.0 (0.2-1.3) mg/dL AST 25 (17-59) U/L ALT 24 (4-49) U/L Alkaline Phosphatase 78 (38-126) U/L Total Protein 6.0 L (6.3-8.2) g/dL Albumin 3.4 L (3.5-5.0) g/dL
[2020-11-20 11:34] LABS: Basophils % (A) 0 %; Eosinophils # (A) 0.2 k/uL (0-0.7); Eosinophils % (A) 2 %; HCT 41.2 % (39.0-53.0); HGB 13.5 gm/dL (13.0-17.5); Lymphocytes # (A) 1.4 k/uL (1.0-4.8); Lymphocytes % (A) 17 %; MCH 29.7 pg (25.0-35.0); MCHC 32.8 g/dL (31.0-37.0); MCV 90.4 fL (80.0-100.0); Mean Platelet Volume 7.1; Monocytes # (A) 0.7 k/uL (0-1.0); Monocytes % (A) 8 %; Neutrophils # (A) 5.9 k/uL (1.3-7.7); Neutrophils % (A) 71 %; Platelet Count 132 k/uL (150-450); RBC 4.55 m/uL (4.30-5.90); RDW 13.1 % (11.5-15.5); WBC 8.3 k/uL (3.8-10.6)
[2020-11-20 11:42] LABS: ALT 24 U/L (4-49); AST 25 U/L (17-59); African American GFR (CKD) >90 (>60 ml/min/1.73 sqM); Albumin 3.4 g/dL (3.5-5.0); Albumin/Globulin Ratio 1.3; Alkaline Phosphatase 78 U/L (38-126); Anion Gap 7 mmol/L; Blood Urea Nitrogen 18 mg/dL (9-20); Calcium 8.4 mg/dL (8.4-10.2); Carbon Dioxide 22 mmol/L (22-30); Chloride 109 mmol/L (98-107); Globulin 2.6 g/dL; Glucose 82 mg/dL (74-99); Non-African American GFR(CKD) >90 (>60 ml/min/1.73 sqM); Sodium 138 mmol/L (137-145)
--- NOTE | 2020-11-20 12:04 | NM ---
EXAMINATION TYPE: NM hepatobiliary wo EF DATE OF EXAM: 11/20/2020 COMPARISON: Gallbladder ultrasound from yesterday HISTORY: Right upper quadrant pain TECHNIQUE: After the intravenous administration of 4.5 mCi Tc 99m Mebrofenin hepatobiliary scintigrap hy is performed. Immediate images post injection. FINDINGS: There is satisfactory initial accumulation of tracer by the liver. The gallbladder is not visualized even after 90 minutes. The small bowel activity is noted within 15 minutes IMPRESSION: Nonuptake of radiotracer by gallbladder strongly suspicious for acute cholecystitis in th e appropriate clinical setting. Correlate clinically. A [place] level critical message alert has been initiated for Denise Felder MD via the [facility] Critical Results System on 11/20/2020 12:02 PM. This message alert has been sent to Denise Felder MD vi a the preferences provided by the clinician for the receipt of Radiology Critical Findings. Message I D [id number].
[2020-11-20] MEDS: IOPAMIDOL CONTRAST (ORAL USE) VIAL PO PRN ×2 (12:09→13:14)
[2020-11-20] MEDS: PANTOPRAZOLE 40 MG/10 ML VIAL IVP SCH (12:10)
--- NOTE | 2020-11-20 13:37 | P.HPIM ---
History of Present Illness H&P Date: 11/20/20 Chief Complaint: Abdominal pain HISTORY OF PRESENT ILLNESS This is a 70-year-old male patient of Dr. Felder with past medical history of hyperlipidemia, spondylosis of the lumbar spine, prostate cancer, paroxysmal atrial fibrillation. Patient gives history of having onset of epigastric and under bilateral ribs abdominal pain Friday along with pain between his shoulder blades. It continued Friday night on a Friday and on Friday the pain was the same and was not letting up and he decided to come in the hospital for evaluation. He did try heat heating blanket heating pad without improvement. He may have been running a fever at home as he was having some chills. He denies having any nausea, vomiting, diarrhea or constipation. He last ate on Friday morning and has been nothing by mouth. His last bowel movement was on Friday which was normal, no blood or tarry stool. He states he has similar episode in September and came into the emergency center but after 30 minutes the pain completely resolved. He also has a history with Dr. Malik and 20 years ago thought he would need to have his gallbladder out. Patient presented to [facility] emergency center. Temperature 100.8, heart rate 89, blood pressure 1 3472, pulse ox 96% on room air. WBC 8.3, hemoglobin 13.5, platelet count 132. Electrolytes were unremarkable. Creatinine 0.73. Liver function tests were normal. COVID-19 not detected. Gallbladder ultrasound revealed distended gallbladder with no obvious gallstones. HIDA scan revealed non-uptake of radiotracer by gallbladder strongly suspicious for acute cholecystitis in the appropriate clinical setting. Patient has been seen by general surgery and CAT scan of the abdomen and pelvis has been ordered for this afternoon. At the time of this evaluation, pain is resolved. REVIEW OF SYSTEMS Constitutional: Reports fever, reports chills, no night sweats. No weight change. No weakness, fatigue or lethargy. No daytime sleepiness. EENT: No headache. No blurred vision or double vision, no loss of vision. No loss of Hearing. No nasal drainage or congestion. No epistaxis. No sore throat. Lungs: No shortness of breath, cough, no sputum production. No wheezing. Cardiovascular: No chest pain, no lower extremity edema. No palpitations. No paroxysmal nocturnal dyspnea. No orthopnea. No lightheadedness or dizziness. No syncopal episodes. Abdominal: Reported abdominal pain, resolved. No nausea, vomiting. No diarrhea. No constipation. No bloody or tarry stools reported loss of appetite. Genitourinary: No dysuria, increased frequency, urgency. No urinary retention. Musculoskeletal: No myalgias. No muscle weakness, no gait dysfunction, no frequent falls. No back pain. No neck pain. Reported pain between shoulder blades. Integumentary: No wounds, no lesions. No rash or pruritus. No unusual bruising. No change in hair or nails. Neurologic: No aphasia. No facial droop. No change in mentation. No head injury. No headache. No paralysis. No paresthesia. Psychiatric: No depression. No anxiety. Endocrine: No abnormal blood sugars. MEDICAL HISTORY Hyperlipidemia, spondylosis of the lumbar spine, prostate cancer, paroxysmal atrial fibrillation not on anticoagulation. SURGICAL HISTORY Variococele 1983, prostate cancer 04/2019, bilateral carpal tunnel release, tonsillectomy and adenoidectomy, colonoscopy 2015. SOCIAL HISTORY History of smoking between the ages of 20 and 29. No illicit drug use. Occasional alcohol use. No marijuana use. Patient takes 2-3 cups of coffee per day. Patient lives at home with his . FAMILY HISTORY Father at age 87 from heart disease, aortic aneurysm. Mother at age 88 from anxiety, chronic UTI and uterine cancer. Patient has 3 sisters and one has bipolar disorder, one with rheumatoid arthritis and one with spondylosis and low iron. PHYSICAL EXAMINATION Gen: This is a 70-year-old male. He is resting in recliner and appears to be in no acute distress. Patient's is at bedside. HEENT: Head is atraumatic, normocephalic. Pupils equal, round. Sclerae is anicteric. NECK: Supple. No lymphadenopathy. No thyromegaly. LUNGS: Clear to auscultation. No wheezes or rhonchi. No intercostal retractions. HEART: Regular rate and rhythm. 2/6 systolic ejection murmur at the left sternal border. No S3, S4, no JVP. ABDOMEN: Soft. Bowel sounds are present. No masses. No tenderness. EXTREMITIES: No pedal edema. No calf tenderness. NEUROLOGICAL: Patient is awake, alert and oriented x3. Cranial nerves 2 through 12 are grossly intact. ASSESSMENT AND PLAN 1. Acute cholecystitis. Continue Zosyn 3.375 g IV piggyback every 8 hours, increase IV fluids 230 ML's per hour, continue nothing by mouth status, and Dilaudid as needed for pain and Zofran as needed for nausea. 2. Hyperlipidemia. Hold Lipitor for now. 3. Spondylosis of the lumbar spine, stable. 4. History of prostate cancer status post surgery, stable. 5. History of paroxysmal atrial fibrillation, sinus rhythm. 6. GI prophylaxis. Protonix 40 mg IV push daily. 7. DVT prophylaxis. Heparin subcu 5000 units every 12 hours. 8. COVID-19 testing negative. Patient has been hospitalized during a pandemic. Patient will be admitted to the hospital for a minimum of 2 night stay. DISCHARGE PLAN Home. Impression and plan of care have been directed as dictated by the signing physician. Luna Velasco nurse practitioner acting as scribe for signing physician. Past Medical History Past Medical History: Atrial Fibrillation, Hyperlipidemia, Hypertension Additional Past Medical History / Comment(s): prostate cancer History of Any Multi-Drug Resistant Organisms: None Reported Past Surgical History: Tonsillectomy Additional Past Surgical History / Comment(s): varicocele Past Psychological History: No Psychological Hx Reported Smoking Status: Former smoker Past Alcohol Use History: None Reported Past Drug Use History: None Reported Medications and Allergies Home Medications Medication Instructions Recorded Confirmed Type Aspirin EC [Ecotrin Low Dose] 81 mg PO HS 01/24/18 11/19/20 History Atorvastatin Calcium [Lipitor] 10 mg PO HS 11/19/20 11/19/20 History Meloxicam [Mobic] 15 mg PO HS 11/19/20 11/19/20 History Niacin [Niaspan] 500 mg PO HS 11/19/20 11/19/20 History Allergies Allergy/AdvReac Type Severity Reaction Status Date / Time codeine Allergy Itching Verified 11/19/20 13:54 Physical Exam Vitals: Vital Signs Temp Pulse Pulse Resp BP BP Pulse Ox 11/20/20 04:45 98.5 F 74 20 119/69 96 11/19/20 19:35 99.4 F 91 20 130/70 92 L 11/19/20 18:12 99.9 F H 11/19/20 17:09 101.8 F H 11/19/20 15:26 99.7 F H 74 18 120/67 97 11/19/20 14:15 74 18 120/67 97 11/19/20 13:36 99.7 F H 84 18 117/66 97 11/19/20 11:47 77 18 125/72 97 11/19/20 10:58 100.8 F H 89 18 134/72 96 Intake and Output 11/19/20 11/20/20 11/20/20 22:59 06:59 14:59 Intake Total 200 1200 Balance 200 1200 Intake: Intake, IV Titration 200 1200 Amount Sodium Chloride 0.9% 1, 200 1200 000 ml @ 100 mls/hr IV . Q10H EULALIO Rx#:[id number] Other: # Voids 1 2 Weight 138.346 kg Results CBC & Chem 7: 11/20/20 11:07 11/20/20 11:07 Labs: Abnormal Lab Results - Last 24 Hours (Table) 11/19/20 11/19/20 11/19/20 Range/Units 11:23 11:23 11:23 WBC 11.3 H (3.8-10.6) k/uL Plt Count 146 L (150-450) k/uL Neutrophils # 9.2 H (1.3-7.7) k/uL Glucose 126 H (74-99) mg/dL Urine Protein Trace H (Negative) Urine Blood Trace H (Negative) Urine Mucus Occasional H (None) /hpf Thrombosis Risk Factor Assmnt - Choose All That Apply Any of the Below Risk Factors Present?: Yes Each Factor Represents 1 point: Obesity (BMI >25) Other Risk Factors: Yes Each Risk Factor Represents 2 Points: Age 61-74 years Thrombosis Risk Factor Assessment Total Risk Factor Score: 3 Thrombosis Risk Factor Assessment Level: Moderate Risk
--- NOTE | 2020-11-20 14:29 | CT ---
"EXAMINATION TYPE: CT abdomen pelvis w con DATE OF EXAM: 11/20/2020 COMPARISON: Gallbladder ultrasound yesterday. Nuclear medicine HIDA scan earlier today. HISTORY: Abdominal pain CT DLP: 2454.30 mGycm, Automated Exposure Control for Dose Reduction was Utilized. CONTRAST: CT scan of the abdomen and pelvis is performed with oral and with IV Contrast, patient injected with 100 ml mL of Isovue 300. FINDINGS: LUNG BASES: Focal mild to moderate right basilar linear scarring and/or atelectasis. LIVER/GB: Gallbladder is distended margins with surrounding fluid and fat stranding. No intraluminal CT dense gallstones. No biliary dilatation. Liver is diffusely low dense consistent with mild diffuse fatty infiltration. PANCREAS: No significant abnormality is seen. SPLEEN: No significant abnormality is seen. ADRENALS: No significant abnormality is seen. KIDNEYS: Small parapelvic cysts bilaterally. Symmetric uptake and excretion without hydronephrosis. BOWEL: There is 3.0 cm duodenal diverticulum along second portion coronal image 53. The oral contrast reaches level of proximal transverse colon. No suspicious small or large bowel dilatation. Normal co ntrast-filled appendix from cecum. PROSTATE/SEMINAL VESICLES: No gross abnormality seen. LYMPH NODES: No greater than 1cm abdominal or pelvic lymph nodes are appreciated. OSSEOUS STRUCTURES: Transitional type vertebra lumbosacral junction. OTHER: No significant additional abnormality is seen. IMPRESSION: Findings above when correlated with ultrasound and HIDA scan are strongly suspicious for acalculous acute cholecystitis. A [place] level critical message alert has been initiated for Landen Malik MD via the [employer] 36 0 | Critical Results System on 11/20/2020 2:26 PM. This message alert has been sent to Landen Malik MD via the preferences provided by the clinician for the receipt of Radiology Critical Findings. [facility] ID [id number]."
[2020-11-20] MEDS: HEPARIN SODIUM,PORCINE/PF 5,000 UNIT/0.5 ML SYRINGE SQ SCH (20:00)
[2020-11-21] MEDS: SODIUM CHLORIDE 0.9% 1,000 ML IV SCH ×3 (05:26→16:29)
[2020-11-21] MEDS: PIPERACILLIN-TAZOBACTAM 3.375 GM in SODIUM CHLORIDE 0.9% 100 ML IVPB SCH ×2 (08:29→16:30)
[2020-11-21] MEDS: PANTOPRAZOLE 40 MG/10 ML VIAL IVP SCH (08:29)
[2020-11-21] MEDS: HEPARIN SODIUM,PORCINE/PF 5,000 UNIT/0.5 ML SYRINGE SQ SCH ×2 (08:34→20:30)
[2020-11-21] MEDS ORDERED: LORazepam 2 MG/ML INJ IV STA (11:30)
[2020-11-21] MEDS ORDERED: IV FLUID CONTINUATION 1,000 ML IV ONE (11:53)
[2020-11-21] MEDS: LACTATED RINGERS 1,000 ML IV SCH (12:34)
[2020-11-21] MEDS ORDERED: NEOSTIGMINE 1 MG/ML 10 ML VIAL ONE (12:39)
[2020-11-21] MEDS ORDERED: fentaNYL (PF) 50 MCG/ML 2 ML AMP ONE (12:39)
[2020-11-21] MEDS ORDERED: HYDROmorphone (PF) 1 MG/ML ONE (12:39)
[2020-11-21] MEDS ORDERED: ROCURONIUM 10 MG/ML (5 ML VIAL) IV ONE (12:39)
[2020-11-21] MEDS ORDERED: PROPOFOL 10 MG/ML 20 ML VIAL IV ONE (12:39)
[2020-11-21] MEDS ORDERED: MIDAZOLAM 2 MG/2 ML VIAL ONE (12:39)
[2020-11-21] MEDS ORDERED: LIDOCAINE 1% INJ 10MG/ML (20 ML MDV) ONE (12:39)
[2020-11-21] MEDS ORDERED: SUCCINYLCHOLINE CHLORIDE VIAL 200 MG/10 ML VIAL IV ONE (12:39)
[2020-11-21] MEDS ORDERED: BUPIVACAIN-EPI 0.5%-1:200,000 30 ML VIAL SQ ONE ×2 (12:39→14:31)
[2020-11-21] MEDS ORDERED: GLYCOPYRROLATE 0.2 MG/ML 2 ML VIAL ONE (12:39)
--- NOTE | 2020-11-21 14:38 | P.PN ---
Subjective Progress Note Date: 11/21/20 HISTORY OF PRESENT ILLNESS This is a 70-year-old male patient of Dr. Felder with past medical history of hyperlipidemia, spondylosis of the lumbar spine, prostate cancer, paroxysmal atrial fibrillation. Patient gives history of having onset of epigastric and under bilateral ribs abdominal pain Friday along with pain between his shoulder blades. It continued Friday night on a Friday and on Friday the pain was the same and was not letting up and he decided to come in the hospital for evaluation. He did try heat heating blanket heating pad without improvement. He may have been running a fever at home as he was having some chills. He denies having any nausea, vomiting, diarrhea or constipation. He last ate on Friday morning and has been nothing by mouth. His last bowel movement was on Friday which was normal, no blood or tarry stool. He states he has similar episode in September and came into the emergency center but after 30 minutes the pain completely resolved. He also has a history with Dr. Malik and 20 years ago thought he would need to have his gallbladder out. Patient presented to [facility] emergency center. Temperature 100.8, heart rate 89, blood pressure 1 3472, pulse ox 96% on room air. WBC 8.3, hemoglobin 13.5, platelet count 132. Electrolytes were unremarkable. Creatinine 0.73. Liver function tests were normal. COVID-19 not detected. Gallbladder ultrasound revealed distended gallbladder with no obvious gallstones. HIDA scan revealed non-uptake of radiotracer by gallbladder strongly suspicious for acute cholecystitis in the appropriate clinical setting. Patient has been seen by general surgery and CAT scan of the abdomen and pelvis has been ordered for this afternoon. At the time of this evaluation, pain is re solved. 11/21: Patient is scheduled for laparoscopic cholecystectomy today with Dr. Malik. Patient complains of slight headache. He denies any abdominal pain. No nausea or vomiting. He is hungry. Patient is afebrile, heart rate 68, blood pressure 148/80, pulse ox 97% on room air. Anticipate discharge home in the next 24 hours. REVIEW OF SYSTEMS Constitutional: Reports fever, reports chills, no night sweats. No weight change. No weakness, fatigue or lethargy. No daytime sleepiness. EENT: No headache. No blurred vision or double vision, no loss of vision. No loss of Hearing. No nasal drainage or congestion. No epistaxis. No sore throat. Lungs: No shortness of breath, cough, no sputum production. No wheezing. Cardiovascular: No chest pain, no lower extremity edema. No palpitations. No paroxysmal nocturnal dyspnea. No orthopnea. No lightheadedness or dizziness. No syncopal episodes. Abdominal: Denies abdominal pain, resolved. No nausea, vomiting. No diarrhea. No constipation. No bloody or tarry stools reported loss of appetite. Genitourinary: No dysuria, increased frequency, urgency. No urinary retention. Musculoskeletal: No myalgias. No muscle weakness, no gait dysfunction, no frequent falls. No back pain. No neck pain. Reported pain between shoulder blades. Integumentary: No wounds, no lesions. No rash or pruritus. No unusual bruising. Neurologic: No aphasia. No facial droop. No change in mentation. No head injury. No headache. No paralysis. No paresthesia. Psychiatric: No depression. No anxiety. Endocrine: No abnormal blood sugars. PHYSICAL EXAMINATION Gen: This is a 70-year-old male. He is resting in bed and appears to be in no acute distress. Patient's is at bedside. HEENT: Head is atraumatic, normocephalic. Pupils equal, round. Sclerae is anicteric. NECK: Supple. No lymphadenopathy. No thyromegaly. LUNGS: Clear to auscultation. No wheezes or rhonchi. No intercostal retractions. HEART: Regular rate and rhythm. 2/6 systolic ejection murmur at the left sternal border. No S3, S4, no JVP. ABDOMEN: Soft. Bowel sounds are present. No masses. No tenderness. EXTREMITIES: No pedal edema. No calf tenderness. NEUROLOGICAL: Patient is awake, alert and oriented x3. Cranial nerves 2 through 12 are grossly intact. ASSESSMENT AND PLAN 1. Acute cholecystitis. Continue Zosyn 3.375 g IV piggyback every 8 hours, increase IV fluids 230 ML's per hour, continue nothing by mouth status, and Dilaudid as needed for pain and Zofran as needed for nausea. 2. Hyperlipidemia. Hold Lipitor for now. 3. Spondylosis of the lumbar spine, stable. 4. History of prostate cancer status post surgery, stable. 5. History of paroxysmal atrial fibrillation, sinus rhythm. 6. GI prophylaxis. Protonix 40 mg IV push daily. 7. DVT prophylaxis. Heparin subcu 5000 units every 12 hours. 8. COVID-19 testing negative. Patient has been hospitalized during a pandemic. DISCHARGE PLAN Home. Impression and plan of care have been directed as dictated by the signing physician. Luna Velasco nurse practitioner acting as scribe for signing physician. Objective - Vital Signs Vital signs: Vital Signs Temp 97.8 F 11/21/20 05:00 Pulse 65 11/21/20 05:00 Resp 20 11/21/20 05:00 BP 118/74 11/21/20 05:00 Pulse Ox 96 11/21/20 05:00 Intake & Output 11/20/20 11/21/20 11/21/20 18:59 06:59 18:59 Intake Total 1480 1300 Balance 1480 1300 Intake: Intake, IV Titration 1480 1300 Amount Piperacillin-Tazobactam 3 100 100 .375 gm In Sodium Chloride 0.9% 100 ml @ 25 mls/hr IVPB Q8HR [facility] Rx# :[id number] Sodium Chloride 0.9% 1, 600 000 ml @ 100 mls/hr IV . Q10H [facility] Rx#:[id number] Sodium Chloride 0.9% 1, 780 1200 000 ml @ 130 mls/hr IV . Q7H42M [facility] Rx#:[id number] Oral 0 Other: Voiding Method Toilet # Voids 2 - Labs CBC & Chem 7: 11/20/20 11:07 11/20/20 11:07 Labs: Abnormal Lab Results - Last 24 Hours (Table) 11/20/20 11/20/20 Range/Units 11:07 11:07 Plt Count 132 L (150-450) k/uL Chloride 109 H (98-107) mmol/L Total Protein 6.0 L (6.3-8.2) g/dL Albumin 3.4 L (3.5-5.0) g/dL
[2020-11-21] MEDS ORDERED: KETOROLAC 15 MG/ML 1 ML VIAL IVP ONE (14:43)
[2020-11-21] MEDS ORDERED: HYDROmorphone 0.5 MG/0.5 ML SYRINGE IVP ONE ×3 (14:45→15:25)
[2020-11-21] MEDS ORDERED: DEXAMETHASONE SOD PHOSPHATE 4 MG/ML 1 ML VIAL IV ONE (15:00)
--- NOTE | 2020-11-21 15:35 | P.OP ---
Date of Procedure: 11/21/20 Procedure(s) Performed: PREOPERATIVE DIAGNOSIS: Acute acalculous cholecystitis POSTOPERATIVE DIAGNOSIS: Same PROCEDURE: Laparoscopic cholecystectomy, lysis of adhesions SURGEON: Helena EBL: Minimal see anesthesia record ANESTHESIA: Gen. COMPLICATIONS: None OPERATIVE PROCEDURE: The patient was brought and placed on the operating room table in the supine position. The patient was placed under general anesthesia at that time. The abdomen was prepped and draped in the usual sterile fashion. A small vertical infraumbilical incision was made. The fascia was grasped with the Nona forceps. The fascia was retracted anteriorly. The Veress needle was advanced into the peritoneal cavity. The saline drop test was normal. Insufflation took place up to 15 mmHg. A 5 mm optical trocar was advanced and the peritoneal cavity. The patient was noted to have a veil of adhesions between the omentum and the abdominal wall in the midepigastric region. An additional 5 mm trocar was placed in the left midabdomen and through that trocar lysis of adhesions took place sharply using scissors. This allowed us to visualize the right upper quadrant. 2 additional 5 mm trochars were placed in the right upper quadrant under direct visualization. A 12 mm trocar was advanced into the epigastric incision site. The patient had significant adhesions between the perihepatic fat and the liver margin. I could not visualize the gallbladder until this fatty tissue was dissected using both blunt dissection and the LigaSure device. Once I was able to visualize the fundus of the gallbladder we grasped the gallbladder and retracted anteriorly. Following that it took some time to carefully dissect the adherent fat away from the chronically inflamed gallbladder. Once we reached the infundibulum further blunt dissection performed and the junction with the gallbladder and cystic duct was visualized. The critical view of safety was achieved after blunt dissection. The cystic duct was then divided after placement of a 2-0 Ethibond stitch on the patient's side of the cystic duct tied down using the tie knot device. A 12 mm clip was also placed on the patient's side. The cystic duct was divided on the other side of the clip. The cystic artery was identified and clipped as well. A small vessel was seen along the gallbladder fossa and clipped as well. The gallbladder was then removed from the liver bed using electrocautery. The gallbladder was then removed from the epigastric trocar site with an Endo Catch bag. The gallbladder fossa was irrigated with saline. There was no evidence of any bleeding or biliary drainage seen. A drain was placed in the gallbladder fossa given the degree of inflammatory changes and exited through the most lateral right upper quadrant 5 mm trocar site. This was sutured to the skin using a 3-0 silk stitch. The fascia at the 12 millimeter site was closed using a WolfHolley 0 Vicryl stitch. The trochars were then removed. The skin at all 4 sites was closed using a 4-0 Monocryl stitch. Skin glue was utilized on the incision sites. At the end of this procedure the sponge and needle counts were correct. DISPOSITION: Stable to the recovery room
[2020-11-21] MEDS ORDERED: LACTATED RINGERS 1,000 ML IV ONE (15:40)
[2020-11-21] MEDS: HYDROmorphone 0.5 MG/0.5 ML SYRINGE IVP PRN ×2 (16:56→19:54)
[2020-11-21] MEDS: DOCUSATE 100 MG CAP PO SCH (20:30)
[2020-11-21] MEDS: traMADol 50 MG TAB PO PRN (23:06)
[2020-11-22] MEDS: PIPERACILLIN-TAZOBACTAM 3.375 GM in SODIUM CHLORIDE 0.9% 100 ML IVPB SCH ×3 (00:07→17:10)
[2020-11-22] MEDS: SODIUM CHLORIDE 0.9% 1,000 ML IV SCH ×2 (00:07→10:31)
[2020-11-22] MEDS: HYDROmorphone 0.5 MG/0.5 ML SYRINGE IVP PRN ×2 (01:41→06:00)
[2020-11-22 07:53] LABS: Basophils % (A) 0 %; Eosinophils # (A) 0.1 k/uL (0-0.7); Eosinophils % (A) 1 %; HCT 40.4 % (39.0-53.0); HGB 13.8 gm/dL (13.0-17.5); Lymphocytes # (A) 1.2 k/uL (1.0-4.8); Lymphocytes % (A) 12 %; MCH 30.3 pg (25.0-35.0); MCHC 34.1 g/dL (31.0-37.0); MCV 88.9 fL (80.0-100.0); Mean Platelet Volume 7.2; Monocytes # (A) 0.6 k/uL (0-1.0); Monocytes % (A) 6 %; Neutrophils # (A) 7.5 k/uL (1.3-7.7); Neutrophils % (A) 79 %; Platelet Count 204 k/uL (150-450); RBC 4.55 m/uL (4.30-5.90); RDW 12.3 % (11.5-15.5); WBC 9.5 k/uL (3.8-10.6)
[2020-11-22] MEDS: HEPARIN SODIUM,PORCINE/PF 5,000 UNIT/0.5 ML SYRINGE SQ SCH ×2 (08:07→20:57)
[2020-11-22] MEDS: PANTOPRAZOLE 40 MG/10 ML VIAL IVP SCH (08:07)
[2020-11-22] MEDS: DOCUSATE 100 MG CAP PO SCH ×2 (08:07→20:57)
[2020-11-22] MEDS: traMADol 50 MG TAB PO PRN ×3 (11:27→23:35)
[2020-11-22] MEDS ORDERED: HYDROcodone/APAP 5-325MG 1 EACH TAB PO PRN (11:55)
--- NOTE | 2020-11-22 11:58 | P.PN ---
<Tonie Howard - Last Filed: 11/22/20 11:47> Subjective Progress Note Date: 11/22/20 CHIEF COMPLAINT: Abdominal pain HISTORY OF PRESENT ILLNESS: Patient is status post laparoscopic cholecystectomy and lysis of adhesions for an acute acalculous cholecystitis. Patient reports not sleeping well due to back pain and his bed being uncomfortable. He is very tired today. He is having some abdominal pain. But it is controlled with pain medication. Denies any nausea or vomiting. He has not passed gas yet or had bowel movement. He was able to eat a yogurt this morning. Afebrile. WBC 9.5 PHYSICAL EXAM: VITAL SIGNS: Reviewed. GENERAL: Well-developed in no acute distress. HEENT: No sclera icterus. Extraocular movements grossly intact. Moist buccal mucosa. Head is atraumatic, normocephalic. ABDOMEN: Soft. Nondistended. Incision sites clean dry and intact NEUROLOGIC: Alert and oriented. Cranial nerves II through XII grossly intact. ASSESSMENT: 1. Acute acalculous cholecystitis PLAN: -Continue low-fat diet -Continue pain medication as needed -Encouraged patient to use incentive spirometer -Encouraged patient to ambulate Physician Nuclear Equipment Design Engineer note has been reviewed by physician. Signing provider agrees with the documented findings, assessment, and plan of care. Objective - Vital Signs Vital signs: Vital Signs Temp 98 F 11/22/20 04:56 Pulse 60 11/22/20 04:56 Resp 16 11/22/20 04:56 BP 115/68 11/22/20 04:56 Pulse Ox 95 11/22/20 04:56 Intake & Output 11/21/20 11/22/20 11/22/20 18:59 06:59 18:59 Intake Total 2810 2060 Output Total 75 Balance 2735 2060 Intake: IV 1800 Intake, IV Titration 1010 1560 Amount Piperacillin-Tazobactam 3 100 .375 gm In Sodium Chloride 0.9% 100 ml @ 25 mls/hr IVPB Q8HR [facility] Rx# :[id number] Sodium Chloride 0.9% 1, 910 1560 000 ml @ 130 mls/hr IV . Q7H42M [facility] Rx#:[id number] Oral 500 Output: Estimated Blood Loss 75 Other: Voiding Method Toilet Toilet Toilet Urinal Urinal # Voids 3 - Labs CBC & Chem 7: 11/22/20 07:28 11/20/20 11:07 <Landen Malik - Last Filed: 11/22/20 12:45> Subjective As above. Patient tolerating liquid and solid foods. Pain is gradually improving. OBDULIO drain is serosanguineous. Continue antibiotics. Possible discharge tomorrow. Objective - Vital Signs Vital signs: Vital Signs Temp 98 F 11/22/20 04:56 Pulse 60 11/22/20 04:56 Resp 16 11/22/20 04:56 BP 115/68 11/22/20 04:56 Pulse Ox 95 11/22/20 04:56 Intake & Output 11/21/20 11/22/20 11/22/20 18:59 06:59 18:59 Intake Total 2810 2060 Output Total 75 Balance 2735 2060 Intake: IV 1800 Intake, IV Titration 1010 1560 Amount Piperacillin-Tazobactam 3 100 .375 gm In Sodium Chloride 0.9% 100 ml @ 25 mls/hr IVPB Q8HR [facility] Rx# :[id number] Sodium Chloride 0.9% 1, 910 1560 000 ml @ 130 mls/hr IV . Q7H42M [facility] Rx#:[id number] Oral 500 Output: Estimated Blood Loss 75 Other: Voiding Method Toilet Toilet Toilet Urinal Urinal # Voids 3 - Labs CBC & Chem 7: 11/22/20 07:28 11/20/20 11:07
--- NOTE | 2020-11-22 14:59 | P.PN ---
Subjective Progress Note Date: 11/22/20 HISTORY OF PRESENT ILLNESS This is a 70-year-old male patient of Dr. Felder with past medical history of hyperlipidemia, spondylosis of the lumbar spine, prostate cancer, paroxysmal atrial fibrillation. Patient gives history of having onset of epigastric and under bilateral ribs abdominal pain Friday along with pain between his shoulder blades. It continued Friday night on a Friday and on Friday the pain was the same and was not letting up and he decided to come in the hospital for evaluation. He did try heat heating blanket heating pad without improvement. He may have been running a fever at home as he was having some chills. He denies having any nausea, vomiting, diarrhea or constipation. He last ate on Friday morning and has been nothing by mouth. His last bowel movement was on Friday which was normal, no blood or tarry stool. He states he has similar episode in September and came into the emergency center but after 30 minutes the pain completely resolved. He also has a history with Dr. Malik and 20 years ago thought he would need to have his gallbladder out. Patient presented to [facility] emergency center. Temperature 100.8, heart rate 89, blood pressure 1 3472, pulse ox 96% on room air. WBC 8.3, hemoglobin 13.5, platelet count 132. Electrolytes were unremarkable. Creatinine 0.73. Liver function tests were normal. COVID-19 not detected. Gallbladder ultrasound revealed distended gallbladder with no obvious gallstones. HIDA scan revealed non-uptake of radiotracer by gallbladder strongly suspicious for acute cholecystitis in the appropriate clinical setting. Patient has been seen by general surgery and CAT scan of the abdomen and pelvis has been ordered for this afternoon. At the time of this evaluation, pain is re solved. 11/21: Patient is scheduled for laparoscopic cholecystectomy today with Dr. Malik. Patient complains of slight headache. He denies any abdominal pain. No nausea or vomiting. He is hungry. Patient is afebrile, heart rate 68, blood pressure 148/80, pulse ox 97% on room air. Anticipate discharge home in the next 24 hours. 11/22: Patient underwent laparoscopic cholecystectomy and lysis of adhesions yesterday afternoon with Dr. Malik. Patient has had no postop complications. He has been hemodynamically stable. He has been afebrile, heart rate 60, blood pressure 115/68, pulse ox 95% on room air. Patient is complaining of pain and tenderness in the right upper quadrant. No nausea vomiting. He has passed gas last evening no bowel movement. Is currently on low-fat diet and complains of decreased appetite. No chest pain or shortness of breath. He does complain of back pain from laying in this bed. His bed has been exchanged. Anticipate discharge home tomorrow. REVIEW OF SYSTEMS Constitutional: Reports fever, reports chills, no night sweats. No weight change. No weakness, fatigue or lethargy. No daytime sleepiness. EENT: No headache. No blurred vision or double vision, no loss of vision. No loss of Hearing. No nasal drainage or congestion. No epistaxis. No sore throat. Lungs: No shortness of breath, cough, no sputum production. No wheezing. Cardiovascular: No chest pain, no lower extremity edema. No palpitations. No paroxysmal nocturnal dyspnea. No orthopnea. No lightheadedness or dizziness. No syncopal episodes. Abdominal: Reports reports right upper quadrant abdominal pain, resolved. No nausea, vomiting. No diarrhea. No constipation. No bloody or tarry stools reported loss of appetite. Genitourinary: No dysuria, increased frequency, urgency. No urinary retention. Musculoskeletal: No myalgias. No muscle weakness, no gait dysfunction, no frequent falls. No back pain. No neck pain. Reported pain between shoulder blades. Integumentary: No wounds, no lesions. No rash or pruritus. No unusual bruising. Neurologic: No aphasia. No facial droop. No change in mentation. No head injury. No headache. No paralysis. No paresthesia. Psychiatric: No depression. No anxiety. Endocrine: No abnormal blood sugars. PHYSICAL EXAMINATION Gen: This is a 70-year-old male. He is resting in bed and appears to be in no acute distress. Patient's is at bedside. HEENT: Head is atraumatic, normocephalic. Pupils equal, round. Sclerae is anicteric. NECK: Supple. No lymphadenopathy. No thyromegaly. LUNGS: Clear to auscultation. No wheezes or rhonchi. No intercostal retr actions. HEART: Regular rate and rhythm. 2/6 systolic ejection murmur at the left sternal border. No S3, S4, no JVP. ABDOMEN: Soft. Bowel sounds are present. No masses. No tenderness. OBDULIO drain in place. Puncture sites with no significant erythema, edema or drainage. EXTREMITIES: No pedal edema. No calf tenderness. NEUROLOGICAL: Patient is awake, alert and oriented x3. Cranial nerves 2 through 12 are grossly intact. ASSESSMENT AND PLAN 1. Acute cholecystitis status post laparoscopic cholecystectomy. Continue low- fat diet, discontinue IV fluids, continue Dilaudid or tramadol as needed for pain and Zofran as needed for nausea. 2. Hyperlipidemia. Hold Lipitor for now. 3. Spondylosis of the lumbar spine, stable. 4. History of prostate cancer status post surgery, stable. 5. History of paroxysmal atrial fibrillation, sinus rhythm. 6. GI prophylaxis. Protonix 40 mg IV push daily. 7. DVT prophylaxis. Heparin subcu 5000 units every 12 hours. 8. COVID-19 testing negative. Patient has been hospitalized during a pandemic. DISCHARGE PLAN Home on . Impression and plan of care have been directed as dictated by the signing physician. Luna Velasco nurse practitioner acting as scribe for signing physician. Objective - Vital Signs Vital signs: Vital Signs Temp 98 F 11/22/20 04:56 Pulse 60 11/22/20 04:56 Resp 16 11/22/20 04:56 BP 115/68 11/22/20 04:56 Pulse Ox 95 11/22/20 04:56 Intake & Output 11/21/20 11/22/20 11/22/20 18:59 06:59 18:59 Intake Total 2810 2060 Output Total 75 Balance 2735 2060 Intake: IV 1800 Intake, IV Titration 1010 1560 Amount Piperacillin-Tazobactam 3 100 .375 gm In Sodium Chloride 0.9% 100 ml @ 25 mls/hr IVPB Q8HR [facility] Rx# :[id number] Sodium Chloride 0.9% 1, 910 1560 000 ml @ 130 mls/hr IV . Q7H42M [facility] Rx#:[id number] Oral 500 Output: Estimated Blood Loss 75 Other: Voiding Method Toilet Toilet Urinal # Voids 3 - Labs CBC & Chem 7: 11/22/20 07:28 11/20/20 11:07
[2020-11-22 15:27] LABS: African American GFR (CKD) 106.4 (60.0-200.0); Albumin 3.8 g/dL (3.80-4.90); Albumin/Globulin Ratio 1.9 (1.60-3.17); Anion Gap 9.2 mmol/L (4.00-12.00); BUN/Creat Ratio 17.5 Ratio (12.00-20.00); Calcium 8.4 mg/dL (8.7-10.3); Carbon Dioxide 22.8 mmol/L (21.6-31.8); Non-African American GFR(CKD) 91.8 (60.0-200.0); Potassium 4.3 mmol/L (3.5-5.5); Total Bilirubin 0.6 mg/dL (0.3-1.2); Total Protein 5.8 g/dL (6.2-8.2)
[2020-11-22] MEDS: LACTATED RINGERS 1,000 ML IV SCH (21:03)
[2020-11-23] MEDS: PIPERACILLIN-TAZOBACTAM 3.375 GM in SODIUM CHLORIDE 0.9% 100 ML IVPB SCH ×2 (00:20→07:22)
[2020-11-23 05:09] VITALS: BP 134/75; PULSE 68; RESP 20; TEMP 98.4
[2020-11-23] MEDS: PANTOPRAZOLE 40 MG/10 ML VIAL IVP SCH (07:22)
[2020-11-23] MEDS: HEPARIN SODIUM,PORCINE/PF 5,000 UNIT/0.5 ML SYRINGE SQ SCH (07:22)
[2020-11-23] MEDS: DOCUSATE 100 MG CAP PO SCH (07:23)
[2020-11-23] MEDS: traMADol 50 MG TAB PO PRN (07:30)
--- NOTE | 2020-11-23 07:34 | P.DS ---
Providers Date of admission: 11/21/20 09:18 Expected date of discharge: 11/23/20 Attending physician: Denise Felder Consults: 11/19/20 14:02 Consult Physician Routine Consulting Provider: Landen Malik Consult Reason/Comments: Ab pain Do you want consulting provider notified?: Already Contacted Primary care physician: Denise Felder [facility] Course: HISTORY OF PRESENT ILLNESS This is a 70-year-old male patient of Dr. Felder with past medical history of hyperlipidemia, spondylosis of the lumbar spine, prostate cancer, paroxysmal atrial fibrillation. Patient gives history of having onset of epigastric and under bilateral ribs abdominal pain Friday along with pain between his shoulder blades. It continued Friday night on a Friday and on Friday the pain was the same and was not letting up and he decided to come in the hospital for evaluation. He did try heat heating blanket heating pad without improvement. He may have been running a fever at home as he was having some chills. He denies having any nausea, vomiting, diarrhea or constipation. He last ate on Friday morning and has been nothing by mouth. His last bowel movement was on Friday which was normal, no blood or tarry stool. He states he has similar episode in September and came into the emergency center but after 30 minutes the pain completely resolved. He also has a history with Dr. Malik and 20 years ago thought he would need to have his gallbladder out. Patient presented to [facility] emergency center. Temperature 100.8, heart rate 89, blood pressure 1 3472, pulse ox 96% on room air. WBC 8.3, hemoglobin 13.5, platelet count 132. Electrolytes were unremarkable. Creatinine 0.73. Liver function tests were normal. COVID-19 not detected. Gallbladder ultrasound revealed distended gallbladder with no obvious gallstones. HIDA scan revealed non-uptake of radiotracer by gallbladder strongly suspicious for acute cholecystitis in the appropriate clinical setting. Patient has been seen by general surgery and CAT scan of the abdomen and pelvis has been ordered for this afternoon. At the time of this evaluation, pain is resolved. 11/21: Patient is scheduled for laparoscopic cholecystectomy today with Dr. Malik. Patient complains of slight headache. He denies any abdominal pain. No nausea or vomiting. He is hungry. Patient is afebrile, heart rate 68, blood pressure 148/80, pulse ox 97% on room air. Anticipate discharge home in the next 24 hours. 11/22: Patient underwent laparoscopic cholecystectomy and lysis of adhesions yesterday afternoon with Dr. Malik. Patient has had no postop complications. He has been hemodynamically stable. He has been afebrile, heart rate 60, blood pressure 115/68, pulse ox 95% on room air. Patient is complaining of pain and tenderness in the right upper quadrant. No nausea vomiting. He has passed gas last evening no bowel movement. Is currently on low-fat diet and complains of decreased appetite. No chest pain or shortness of breath. He does complain of back pain from laying in this bed. His bed has been exchanged. Anticipate discharge home tomorrow. 11/23: She is a 30 years feeling 100% better from yesterday. He is eating without any nausea or vomiting. He is passing gas. No bowel movement. OBDULIO drain remains in place. He denies any lower extremity edema. He states he has been walking in his room. He is using some spirometry at 200 MLS. He is to be febrile, temperature max 99.7. Heart rate 60, blood pressure 134/75, pulse ox 96% on room air. Patient will be discharged home today in stable condition. ASSESSMENT AND PLAN 1. Acute cholecystitis 2. Hyperlipidemia. 3. Spondylosis of the lumbar spine, stable. 4. History of prostate cancer status post surgery, stable. 5. History of paroxysmal atrial fibrillation, sinus rhythm. 6. COVID-19 testing negative. Patient has been hospitalized during a pandemic. DISCHARGE PLAN Home. Impression and plan of care have been directed as dictated by the signing physician. Luna Velasco nurse practitioner acting as scribe for signing physician. Patient Condition at Discharge: Good Plan - Discharge Summary Discharge Rx Participant: No New Discharge Prescriptions: New Amoxicillin/Potassium Clav [Augmentin 875-125 Tablet] 1 tab PO BID 7 Days #14 tab Continue Aspirin EC [Ecotrin Low Dose] 81 mg PO HS Niacin [Niaspan] 500 mg PO HS Atorvastatin Calcium [Lipitor] 10 mg PO HS Discontinued Meloxicam [Mobic] 15 mg PO HS Discharge Medication List Aspirin EC [Ecotrin Low Dose] 81 mg PO HS 01/24/18 [History] Atorvastatin Calcium [Lipitor] 10 mg PO HS 11/19/20 [History] Niacin [Niaspan] 500 mg PO HS 11/19/20 [History] Amoxicillin/Potassium Clav [Augmentin 875-125 Tablet] 1 tab PO BID 7 Days #14 tab 11/23/20 [Rx] Follow up Appointment(s)/Referral(s): Landen Malik MD [Medical Doctor] - 1 Week Denise Felder MD [Primary Care Provider] - 1 Week Discharge Disposition: HOME SELF-CARE
--- NOTE | 2020-11-23 12:10 | P.PN ---
Subjective Progress Note Date: 11/23/20 CHIEF COMPLAINT: Abdominal pain HISTORY OF PRESENT ILLNESS: Patient is status post laparoscopic cholecystectomy and lysis of adhesions for an acute acalculous cholecystitis. Postoperative day #2. Patient reports that he is feeling better today. His pain is better controlled. He denies any nausea or vomiting. He is tolerating diet. He is passing gas. He has been up and ambulating. He feels ready for discharge. He is afebrile. PHYSICAL EXAM: VITAL SIGNS: Reviewed. GENERAL: Well-developed in no acute distress. HEENT: No sclera icterus. Extraocular movements grossly intact. Moist buccal mucosa. Head is atraumatic, normocephalic. ABDOMEN: Soft. Nondistended. Incision sites clean dry and intact NEUROLOGIC: Alert and oriented. Cranial nerves II through XII grossly intact. ASSESSMENT: 1. Acute acalculous cholecystitis PLAN: -Patient is stable from surgical standpoint for discharge -Continue low-fat diet -Continue pain medication as needed -Encouraged patient to use incentive spirometer -Encouraged patient to ambulate Physician Energy Operations Vice President note has been reviewed by physician. Signing provider agrees with the documented findings, assessment, and plan of care. Objective - Vital Signs Vital signs: Vital Signs Temp 98.4 F 11/23/20 05:08 Pulse 68 11/23/20 05:08 Resp 20 11/23/20 05:08 BP 134/75 11/23/20 05:08 Pulse Ox 96 11/23/20 05:08 Intake & Output 11/22/20 11/23/20 11/23/20 18:59 06:59 18:59 Intake Total 1040 480 Output Total 30 1545 Balance 1010 -1545 480 Intake: Intake, IV Titration 1040 Amount Sodium Chloride 0.9% 1, 1040 000 ml @ 130 mls/hr IV . [id number] [facility] Rx#:[id number] Oral 480 Output: Drainage 30 20 Lower Abdomen 30 20 Urine 1525 Other: Voiding Method Toilet Toilet Urinal Urinal # Voids 3 - Labs CBC & Chem 7: 11/22/20 07:28 11/22/20 07:28 Labs: Abnormal Lab Results - Last 24 Hours (Table) 11/22/20 Range/Units 07:28 Glucose 131 H (70-110) mg/dL Calcium 8.4 L (8.7-10.3) mg/dL AST 36 H (14-35) U/L Total Protein 5.8 L (6.2-8.2) g/dL
== END 2020-11-23 13:25 | disposition home or self-care (01) | DRG 419 ==
LOC: EC 10:54 → 5NMEDONC 14:01 → OBSVTOIN 11-21 09:18
PROVIDERS: ADMIT Internal Medicine; ATTEND Internal Medicine
PROC: 0FT44ZZ Resection of Gallbladder, Percutaneous Endoscopic Approach (ICD-10-PCS; principal; 2020-11-21 15:10)
DX: K81.0 Acute cholecystitis (principal); E78.5 Hyperlipidemia, unspecified; M47.816 Spondylosis without myelopathy or radiculopathy, lumbar region; I48.0 Paroxysmal atrial fibrillation; Z20.822 Contact with and (suspected) exposure to COVID-19; I10 Essential (primary) hypertension; Z85.46 Personal history of malignant neoplasm of prostate; Z87.891 Personal history of nicotine dependence; Z79.899 Other long term (current) drug therapy
CPT/HCPCS: 36415; 74177; 76705; 78226; 80053; 81001; 82150; 83605; 83690; 85025; 87635; 88304; 96361; 96365; 99285

== ENCOUNTER 2022-11-29 14:52 | Observation (INO) | payer MEDICARE, BC ==
[2022-11-29] MEDS ORDERED: SODIUM CHLORIDE 0.9% 1,000 ML IV STA ×2 (15:17→15:56)
--- NOTE | 2022-11-29 15:17 | ED ---
Syncope HPI - General Chief Complaint: Dizziness Stated Complaint: Near syncope Time Seen by Provider: 11/29/22 15:16 Source: patient, EMS, RN notes reviewed, old records reviewed, Caregiver Mode of arrival: EMS Limitations: no limitations - History of Present Illness Initial Comments: This is a 72-year-old male to the emergency department for evaluation today of recent diarrheal episodes 3-4 episodes today weakness and patient states he did almost pass out. Patient was doing normal daily activities, went to help his family member who had fallen and when he came home he was kind of worn out and had a near syncopal event per family. Patient was at the urgent care when this occurred he went to the urgent care for evaluation of not feeling well. Patient is no headache chest pain shortness breath or abdominal pain. No other significant findings patient was sent by urgent care to emergency prior for evaluation MD Complaint: loss of consciousness (Patient near loss of consciousness), felt faint, almost passed out -: hour(s) Prodromal Symptoms: vision changes, lightheaded, palpitations, diaphoresis -: second(s) Witnessed: yes - by bystander, yes - by EMS Injuries Sustained Associated with Event: None Current Symptoms: lightheaded, weakness History: previous syncopal episode Context: during exertion Treatments Prior to Arrival: none - Related Data Home Medications Medication Instructions Recorded Confirmed Aspirin EC [Ecotrin Low Dose] 81 mg PO HS 01/24/18 11/29/22 Niacin [Niaspan] 500 mg PO HS 11/19/20 11/29/22 Atorvastatin [Lipitor] 20 mg PO HS 11/29/22 11/29/22 Cholecalciferol [Vitamin D3 (25 25 mcg PO HS 11/29/22 11/29/22 Mcg = 1000 Iu)] Losartan Potassium 50 mg PO HS 11/29/22 11/29/22 Meloxicam [Mobic] 7.5 mg PO HS 11/29/22 11/29/22 Multivitamins, Thera [Multivitamin 1 tab PO HS 11/29/22 11/29/22 (formulary)] Semaglutide [Ozempic] 0.5 mg SQ TU 11/29/22 11/29/22 Allergies Allergy/AdvReac Type Severity Reaction Status Date / Time codeine Allergy Itching Verified 11/29/22 16:30 Review of Systems ROS Statement: Those systems with pertinent positive or pertinent negative responses have been documented in the HPI. ROS Other: All systems not noted in ROS Statement are negative. Past Medical History Past Medical History: Atrial Fibrillation, Hyperlipidemia, Hypertension Additional Past Medical History / Comment(s): prostate cancer History of Any Multi-Drug Resistant Organisms: None Reported Past Surgical History: Tonsillectomy Additional Past Surgical History / Comment(s): varicocele Past Psychological History: No Psychological Hx Reported Smoking Status: Former smoker Past Alcohol Use History: None Reported Past Drug Use History: None Reported General Exam Limitations: no limitations General appearance: alert, in no apparent distress Head exam: Present: atraumatic, normocephalic, normal inspection Eye exam: Present: normal appearance, PERRL, EOMI. Absent: scleral icterus, conjunctival injection, periorbital swelling ENT exam: Present: normal exam, mucous membranes moist Neck exam: Present: normal inspection. Absent: tenderness, meningismus, lymphadenopathy Respiratory exam: Present: normal lung sounds bilaterally. Absent: respiratory distress, wheezes, rales, rhonchi, stridor Cardiovascular Exam: Present: regular rate, normal rhythm, normal heart sounds. Absent: systolic murmur, diastolic murmur, rubs, gallop, clicks GI/Abdominal exam: Present: soft, normal bowel sounds. Absent: distended, tenderness, guarding, rebound, rigid Extremities exam: Present: normal inspection, full ROM, normal capillary refill. Absent: tenderness, pedal edema, joint swelling, calf tenderness Back exam: Present: normal inspection Neurological exam: Present: alert, oriented X3, CN II-XII intact Psychiatric exam: Present: normal affect, normal mood Skin exam: Present: warm, dry, intact, normal color. Absent: rash Course Vital Signs 11/29/22 14:59 Temperature 100.2 F H Pulse Rate 88 Respiratory 16 Rate Blood Pressure 152/68 O2 Sat by Pulse 97 Oximetry - Reevaluation(s) Reevaluation #1: 11/29/22 17:19 Medical records reviewed Reevaluation #2: 11/29/22 17:20 Patient's symptoms continue to improve with hydration Reevaluation #3: 11/29/22 17:20 Patient informed results questions are answered Reevaluation #4: 11/29/22 17:20 Was pt. sent in by a medical professional or institution? @ -no Did you speak to anyone other than the patient for history? @ -no Did you review nursing and triage notes? @ -agree Were old charts reviewed? @ -no Differential Diagnosis? @ -prior EKG interpreted by me (3pts min.)? @ -yes X-rays interpreted by me (1pt min.)? @ -yes CT interpreted by me (1pt min.)? @ -no U/S interpreted by me (1pt. min.)? @ -no What testing was considered but not performed? (CT, X-rays, U/S, labs)? Why? @ -no What meds were considered but not given? Why? @ -no Did you discuss the management of the patient with other professionals? @ -no Did you reconcile home meds? @ -no Was smoking cessation discussed for >3mins.? @ -no Was critical care preformed (if so, how long)? @ -no Were there social determinants of health that impacted care today? How? (Homelessness, low income, unemployed, alcoholism, drug addiction, transportation, low edu. Level, literacy, decrease access to med. care, snf, rehab)? @ -no Was there de-escalation of care discussed even if they declined? (Discuss DNR or withdrawal of care, Hospice)? @ -no What co-morbidities impacted this encounter? (DM, HTN, Smoking, COPD, CAD, Cancer, CVA, Hep., AIDS, mental health diagnosis, sleep apnea, morbid obesity)? @ -none Was patient admitted / discharged? @ - Undiagnosed new problem with uncertain prognosis? @ -no Drug Therapy requiring intensive monitoring for toxicity (Heparin, Nitro, Insulin, Cardizem)? @ -no Were any procedures done? @ -no Diagnosis/symptom? @ - Acute, or Chronic, or Acute on Chronic? @ -no Uncomplicated (without systemic symptoms) or Complicated (systemic symptoms)? @ -uncomplicated Side effects of treatment? @ -no Exacerbation, Progression, or Severe Exacerbation] @ -no Poses a threat to life or bodily function? @ -yes Reevaluation #5: 11/29/22 17:20 Differential Syncope: Valvular disease, hypertrophic cardiomyopathy, pulmonary embolism, tamponade, tachycardia, bradycardia, OH, hypovolemia, hemorrhage, dissection, anemia, intracranial hemorrhage, seizure, hypoglycemia, carbon monoxide poisoning, this is not meant to be an all-inclusive list. Differential Fever: Pneumonia, viral URI, endocarditis, myocarditis, pericarditis, otitis, sinusitis, peritonsillar Abscess, retropharyngeal Abscess, epiglottitis, peritonitis, appendicitis, Ev cystitis, diverticulitis, hepatitis, colitis, UTI, PID, TOA, pyelonephritis, prostatitis, epididymitis, meningitis, encephalitis, pulmonary embolism, CVA, thyroid storm, pancreatitis, adrenal crisis, cavernous sinus thrombosis, this is not meant to be an all-inclusive list. EKG Findings - EKG Comments: EKG Findings:: EKG sinus 85 VT 104 QRS 160 QTC 416 Medical Decision Making - Medical Decision Making 72 male DF for evaluation of near syncopal event weakness fever. No cause a f ever found here in the emergency department. Patient does have diarrhea nausea currently likely GI infection. Patient is feeling improved labwork is otherwise normal patient can be discharged home - Lab Data Result diagrams: 11/29/22 15:49 11/29/22 15:49 Lab Results 11/29/22 11/29/22 11/29/22 Range/Units 15:49 15:49 15:49 WBC 6.1 (3.8-10.6) k/uL RBC 5.31 (4.30-5.90) m/uL Hgb 15.8 (13.0-17.5) gm/dL Hct 48.0 (39.0-53.0) % MCV 90.4 (80.0-100.0) fL MCH 29.7 (25.0-35.0) pg MCHC 32.8 (31.0-37.0) g/dL RDW 12.6 (11.5-15.5) % Plt Count 120 L (150-450) k/uL MPV 7.8 Neutrophils % 89 % Lymphocytes % 5 % Monocytes % 4 % Eosinophils % 1 % Basophils % 0 % Neutrophils # 5.4 (1.3-7.7) k/uL Lymphocytes # 0.3 L (1.0-4.8) k/uL Monocytes # 0.2 (0-1.0) k/uL Eosinophils # 0.1 (0-0.7) k/uL Basophils # 0.0 (0-0.2) k/uL PT 11.1 (9.0-12.0) sec INR 1.1 (<1.2) APTT 18.5 L (22.0-30.0) sec Sodium 139 (137-145) mmol/L Potassium 3.9 (3.5-5.1) mmol/L Chloride 106 (98-107) mmol/L Carbon Dioxide 25 (22-30) mmol/L Anion Gap 8 mmol/L BUN 20 (9-20) mg/dL Creatinine 0.79 (0.66-1.25) mg/dL Est GFR (CKD-EPI)AfAm >90 (>60 ml/min/1.73 sqM) Est GFR (CKD-EPI)NonAf >90 (>60 ml/min/1.73 sqM) Glucose 110 H (74-99) mg/dL Plasma Lactic Acid Corby (0.7-2.0) mmol/L Calcium 8.2 L (8.4-10.2) mg/dL Phosphorus 2.2 L (2.5-4.5) mg/dL Magnesium 1.6 (1.6-2.3) mg/dL Total Bilirubin 0.8 (0.2-1.3) mg/dL AST 36 (17-59) U/L ALT 35 (4-49) U/L Alkaline Phosphatase 59 (38-126) U/L Troponin I (0.000-0.034) ng/mL NT-Pro-B Natriuret Pep pg/mL Total Protein 6.4 (6.3-8.2) g/dL Albumin 3.9 (3.5-5.0) g/dL Influenza Type A (PCR) (Not Detectd) Influenza Type B (PCR) (Not Detectd) RSV (PCR) (Not Detectd) SARS-CoV-2 (PCR) (Not Detectd) 11/29/22 11/29/22 11/29/22 Range/Units 15:49 15:49 15:57 WBC (3.8-10.6) k/uL RBC (4.30-5.90) m/uL Hgb (13.0-17.5) gm/dL Hct (39.0-53.0) % MCV (80.0-100.0) fL MCH (25.0-35.0) pg MCHC (31.0-37.0) g/dL RDW (11.5-15.5) % Plt Count (150-450) k/uL MPV Neutrophils % % Lymphocytes % % Monocytes % % Eosinophils % % Basophils % % Neutrophils # (1.3-7.7) k/uL Lymphocytes # (1.0-4.8) k/uL Monocytes # (0-1.0) k/uL Eosinophils # (0-0.7) k/uL Basophils # (0-0.2) k/uL PT (9.0-12.0) sec INR (<1.2) APTT (22.0-30.0) sec Sodium (137-145) mmol/L Potassium (3.5-5.1) mmol/L Chloride (98-107) mmol/L Carbon Dioxide (22-30) mmol/L Anion Gap mmol/L BUN (9-20) mg/dL Creatinine (0.66-1.25) mg/dL Est GFR (CKD-EPI)AfAm (>60 ml/min/1.73 sqM) Est GFR (CKD-EPI)NonAf (>60 ml/min/1.73 sqM) Glucose (74-99) mg/dL Plasma Lactic Acid Corby 1.5 (0.7-2.0) mmol/L Calcium (8.4-10.2) mg/dL Phosphorus (2.5-4.5) mg/dL Magnesium (1.6-2.3) mg/dL Total Bilirubin (0.2-1.3) mg/dL AST (17-59) U/L ALT (4-49) U/L Alkaline Phosphatase (38-126) U/L Troponin I <0.012 (0.000-0.034) ng/mL NT-Pro-B Natriuret Pep 34 pg/mL Total Protein (6.3-8.2) g/dL Albumin (3.5-5.0) g/dL Influenza Type A (PCR) (Not Detectd) Influenza Type B (PCR) (Not Detectd) RSV (PCR) (Not Detectd) SARS-CoV-2 (PCR) (Not Detectd) 11/29/22 Range/Units 16:29 WBC (3.8-10.6) k/uL RBC (4.30-5.90) m/uL Hgb (13.0-17.5) gm/dL Hct (39.0-53.0) % MCV (80.0-100.0) fL MCH (25.0-35.0) pg MCHC (31.0-37.0) g/dL RDW (11.5-15.5) % Plt Count (150-450) k/uL MPV Neutrophils % % Lymphocytes % % Monocytes % % Eosinophils % % Basophils % % Neutrophils # (1.3-7.7) k/uL Lymphocytes # (1.0-4.8) k/uL Monocytes # (0-1.0) k/uL Eosinophils # (0-0.7) k/uL Basophils # (0-0.2) k/uL PT (9.0-12.0) sec INR (<1.2) APTT (22.0-30.0) sec Sodium (137-145) mmol/L Potassium (3.5-5.1) mmol/L Chloride (98-107) mmol/L Carbon Dioxide (22-30) mmol/L Anion Gap mmol/L BUN (9-20) mg/dL Creatinine (0.66-1.25) mg/dL Est GFR (CKD-EPI)AfAm (>60 ml/min/1.73 sqM) Est GFR (CKD-EPI)NonAf (>60 ml/min/1.73 sqM) Glucose (74-99) mg/dL Plasma Lactic Acid Corby (0.7-2.0) mmol/L Calcium (8.4-10.2) mg/dL Phosphorus (2.5-4.5) mg/dL Magnesium (1.6-2.3) mg/dL Total Bilirubin (0.2-1.3) mg/dL AST (17-59) U/L ALT (4-49) U/L Alkaline Phosphatase (38-126) U/L Troponin I (0.000-0.034) ng/mL NT-Pro-B Natriuret Pep pg/mL Total Protein (6.3-8.2) g/dL Albumin (3.5-5.0) g/dL Influenza Type A (PCR) Not Detected (Not Detectd) Influenza Type B (PCR) Not Detected (Not Detectd) RSV (PCR) Not Detected (Not Detectd) SARS-CoV-2 (PCR) Not Detected (Not Detectd) - EKG Data -: EKG Interpreted by Me (EKG is sinus at 85 VT 144 QRS 116 QTC 416) - Radiology Data Radiology results: report reviewed (Chest x-rays negative for acute disease), image reviewed Disposition Clinical Impression: Fever, Dehydration, Near syncope, Gastroenteritis, Diarrhea Disposition: ADMITTED IP TO THIS [facility] Condition: Fair Is patient prescribed a controlled substance at d/c from ED?: No Referrals: Denise Felder MD [Primary Care Provider] - 1-2 days Time of Disposition: 18:00
--- NOTE | 2022-11-29 15:52 | XR ---
EXAMINATION TYPE: XR chest 1V portable DATE OF EXAM: 11/29/2022 COMPARISON: Chest x-ray August 27, 2010 HISTORY: Weakness and hypotension. TECHNIQUE: Single AP portable frontal upright view of the chest is obtained. FINDINGS: There is no focal air space opacity, pleural effusion, or pneumothorax seen. The cardiac silhouette size is stable and within normal limits. The osseous structures are intact. IMPRESSION: No acute process.
[2022-11-29] MEDS ORDERED: IBUPROFEN 800 MG TAB PO STA (15:56)
[2022-11-29] MEDS ORDERED: ACETAMINOPHEN TAB 500 MG TAB PO STA (15:56)
[2022-11-29 16:54] LABS: Basophils % (A) 0 %; Eosinophils # (A) 0.1 k/uL (0-0.7); Eosinophils % (A) 1 %; HGB 15.8 gm/dL (13.0-17.5); Lymphocytes # (A) 0.3 k/uL (1.0-4.8); Lymphocytes % (A) 5 %; MCH 29.7 pg (25.0-35.0); MCHC 32.8 g/dL (31.0-37.0); MCV 90.4 fL (80.0-100.0); Mean Platelet Volume 7.8; Monocytes # (A) 0.2 k/uL (0-1.0); Monocytes % (A) 4 %; Neutrophils # (A) 5.4 k/uL (1.3-7.7); Neutrophils % (A) 89 %; Platelet Count 120 k/uL (150-450); RBC 5.31 m/uL (4.30-5.90); RDW 12.6 % (11.5-15.5); WBC 6.1 k/uL (3.8-10.6)
[2022-11-29] MEDS ORDERED: ONDANSETRON 4 MG/2 ML VIAL IVP STA (16:57)
[2022-11-29 17:09] LABS: INR 1.1 (<1.2); Prothrombin Time 11.1 sec (9.0-12.0)
[2022-11-29 17:11] LABS: ALT 35 U/L (4-49); AST 36 U/L (17-59); African American GFR (CKD) >90 (>60 ml/min/1.73 sqM); Albumin 3.9 g/dL (3.5-5.0); Alkaline Phosphatase 59 U/L (38-126); Anion Gap 8 mmol/L; Blood Urea Nitrogen 20 mg/dL (9-20); Calcium 8.2 mg/dL (8.4-10.2); Carbon Dioxide 25 mmol/L (22-30); Chloride 106 mmol/L (98-107); Glucose 110 mg/dL (74-99); Magnesium 1.6 mg/dL (1.6-2.3); Non-African American GFR(CKD) >90 (>60 ml/min/1.73 sqM); Phosphorus 2.2 mg/dL (2.5-4.5); Potassium 3.9 mmol/L (3.5-5.1); Sodium 139 mmol/L (137-145); Total Bilirubin 0.8 mg/dL (0.2-1.3); Total Protein 6.4 g/dL (6.3-8.2)
[2022-11-29 17:12] LABS: Partial Thromboplastin Time 18.5 sec (22.0-30.0)
[2022-11-29] MEDS ORDERED: MORPHINE SULFATE 4 MG/ML SYRINGE IV PRN (18:28)
[2022-11-29] MEDS ORDERED: IBUPROFEN 400 MG TAB PO PRN (18:28)
[2022-11-29] MEDS ORDERED: ACETAMINOPHEN TAB 325 MG TAB PO PRN (18:28)
[2022-11-29] MEDS ORDERED: NALOXONE 0.4 MG/ML 1 ML VIAL IV PRN (18:28)
[2022-11-29 20:06] LABS: Appearance,Urine Clear (Clear); Bilirubin,Urine Negative (Negative); Blood,Urine Negative (Negative); Color,Urine Yellow; Glucose,Urine (UA) Negative (Negative); Ketones,Urine Negative (Negative); Leukocyte Esterase,Urine Negative (Negative); Nitrite,Urine Negative (Negative); PH, Urine 5.5 (5.0-8.0); Protein,Urine Trace (Negative); Specific Gravity,Urine 1.018 (1.001-1.035); Urobilinogen,Urine <2.0 mg/dL (<2.0)
[2022-11-29] MEDS: SODIUM CHLORIDE 0.9% 1,000 ML IV SCH (20:15)
[2022-11-29] MEDS: ONDANSETRON 4 MG/2 ML VIAL IVP PRN (22:23)
[2022-11-29] MEDS ORDERED: MELATONIN 3 MG TABLET PO PRN (23:30)
[2022-11-30] MEDS: SODIUM CHLORIDE 0.9% 1,000 ML IV SCH ×2 (02:44→10:36)
[2022-11-30] MEDS: ONDANSETRON 4 MG/2 ML VIAL IVP PRN (05:48)
[2022-11-30 10:10] LABS: African American GFR (CKD) 104.9 (60.0-200.0); Albumin 3.4 g/dL (3.8-4.9); Albumin/Globulin Ratio 2.27 (1.60-3.17); Anion Gap 6.6 mmol/L (10.00-18.00); BUN/Creat Ratio 21.25 Ratio (12.00-20.00); Calcium 7.9 mg/dL (8.7-10.3); Carbon Dioxide 24.4 mmol/L (20.0-27.5); Globulin 1.5 g/dL (1.6-3.3); Magnesium 1.7 mg/dL (1.5-2.4); Non-African American GFR(CKD) 90.5 (60.0-200.0); Phosphorus 2.3 mg/dL (2.4-5.1); Potassium 3.9 mmol/L (3.5-5.5); Total Bilirubin 0.7 mg/dL (0.30-1.20); Total Protein 4.9 g/dL (6.2-8.2)
[2022-11-30 10:18] LABS: Basophils # (A) 0.01 X 10*3/uL (0.00-0.10); Basophils % (A) 0.3 %; Eosinophils # (A) 0.07 X 10*3/uL (0.04-0.35); Eosinophils % (A) 1.9 %; HCT 42.2 % (39.6-50.0); HGB 13.9 g/dL (13.0-17.0); Immature Grans, Automated 0 %; Lymphocytes # (A) 0.74 X 10*3/uL (0.90-5.00); Lymphocytes % (A) 19.8 %; MCH 29.1 pg (27.0-32.0); MCHC 32.9 g/dL (32.0-37.0); MCV 88.5 fL (80.0-97.0); Mean Platelet Volume 10.1 fL (9.5-12.2); Monocytes # (A) 0.35 X 10*3/uL (0.20-1.00); Monocytes % (A) 9.4 %; NRBC Per 100 WBC 0 /100 WBCS (0.0-0.0); Neutrophils # (A) 2.57 X 10*3/uL (1.80-7.70); Neutrophils % (A) 68.6 %; Platelet Count 107 X 10*3/uL (140-440); RBC 4.77 X 10*6/uL (4.40-5.60); RDW 12.4 % (11.5-14.5); WBC 3.74 X 10*3/uL (4.50-10.00)
[2022-11-30] MEDS ORDERED: MELOXICAM 7.5 MG TAB PO SCH ×2 (10:30→21:00)
--- NOTE | 2022-11-30 14:27 | P.HPIM ---
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, history of prostate cancer currently in rem ission, patient presented to the emergency department at [facility] after he has had a presyncopal episode according to the emergency room physician the patient has been having diarrhea 3-4 times over the last 24 hours, and he was feeling generally weak, he went to help the family member who had fallen and he became quite fatigued and tired ended up going to the urgent care for evaluation of not feeling well, had a presyncopal episode so he was sent to the ER for evaluation, his laboratory evaluation came all normal, his vital signs were normal, chest x-ray did not show evidence of acute of abnormalities, patient appears to be somewhat orthostatic, he was given IV fluid resuscitation, he was admitted to the hospital as an observation for vasovagal syncope rule out cardiac arrhythmias, patient has been following with his junk dealer on the regular basis and he has recently had myocardial perfusion imaging that was negative for stress-induced ischemia, patient initially was supposed to be discharged home however the emergency room physician changes wanted admitted the patient as an observation. REVIEW OF SYSTEMS: Constitutional: No documented fever, no chills, no night sweats. No weight change. No weakness, fatigue or lethargy. No daytime sleepiness. HEENT: No headache. No blurred vision or double vision, no loss of vision. No loss of Hearing, no ringing in the ears, no dizziness. No nasal drainage or congestion. No epistaxis. No sore throat. Lungs: No shortness of breath, no cough, no sputum production. No wheezing. Reports dyspnea with activity. Cardiovascular: No chest pain, no lower extremity edema. No palpitations. No paroxysmal nocturnal dyspnea. No orthopnea. No lightheadedness or dizziness. No syncopal episodes. Abdominal: Reports abdominal pain. No nausea, vomiting. No diarrhea. No constipation. No bloody or tarry stools reports loss of appetite. Genitourinary: No dysuria, increased frequency, urgency. No urinary retention. Musculoskeletal: No myalgias. No muscle weakness, no gait dysfunction, no frequent falls. No back pain. No neck pain. Integumentary: No wounds, no lesions. No rash or pruritus. No unusual bruising. No change in hair or nails. Neurologic: No aphasia. No facial droop. No change in mentation. No head injury. No headache. No paralysis. No paresthesia. Psychiatric: No depression. No anxiety. No mood swings. Endocrine: No abnormal blood sugars. No weight change. PAST MEDICAL HISTORY: Hypertension and hypertensive cardiovascular disease. mixed hyperlipidemia. 2. paroxysmal atrial fibrillation Prostate cancer Obesity Spondylosis of the lumbar spine PAST SURGICAL HISTORY: varicocele 1984 Prostate cancer in 2019 Bilateral carpal tunnel surgery Tonsillectomy and adenoidectomy Colonoscopy 2016 Cholecystectomy 2020. SOCIAL HISTORY: patient used to smoke about a pack every day since the age of 20 and quit at the age of 29, patient drinks occasionally, he denies any drug use or abuse. FAMILY HISTORY: father at age of 87 from heart disease and thoracic aortic aneurysm mother at age 88 from anxiety chronic UTI and uterine cancer patient has 3 sisters one with bipolar disorder one with rheumatoid arthritis and one was spondylosis and iron deficiency anemia, PHYSICAL EXAMINATION: General: 72-year-old male sitting up in bed in no apparent distress HEENT: Head is atraumatic, normocephalic, pupils were equal round reactive to light and recommendation, extraocular muscle movement were intact, sclera nonicteric, conjunctivae were pale, mucous membranes of the mouth are somewhat dry. Neck: Supple, no JVP, normal carotid upstroke bilaterally, no lymphadenopathy. Chest: Decreased breath sounds at the bases, few rhonchi, no expiratory wheezes, no chest wall tenderness, no intercostal retractions. Heart: First heart sound is normal, second heart sounds normal Abdomen: Soft, nontender, nondistended, positive bowel sounds. no heptosplenomegaly Extremities: There is no edema no calf tenderness DP +2 bilaterally. Neurologic examination: Patient is awake alert and oriented X 3, cranial nerves II-12 appear grossly intact, muscle power were 5 out of 5 in upper extremities and 5 out of 5 in bilateral lower extremities, deep tendon reflexes normal josh aterally. ASSESSMENT AND PLAN: 1. Presyncope likely related to vasovagal reaction due to significant diarrhea and fluid loss. Continue patient on IV fluid resuscitation, patient appears to be quite a significant this time, patient monitor did not show evidence of acute of normalities, his labs and his vital signs are stable so he can be discharged home with follow-up as an outpatient. 2. Hypertension and hypertensive perivascular disease. Continue patient on losartan 50 mg orally once every day, monitor the patient blood pressure very closely. 3. Mixed hyperlipidemia. Continue atorvastatin 20 mg once every day. 4. Vitamin D deficiency. Continue vitamin D3 2000 units once every day. 5. Paroxysmal atrial fibrillation currently in sinus rhythm. Patient has been following with cardiology as cardiology, his cardiac testings are up-to-date we'll continue with aspirin 81 mg once every day. 6. History of spondylosis of the lumbar spine. Patient has been taking Mobic 15 mg at bedtime. 7. History of obesity patient was just started on she'll be receptor agonist in the form of Ozempic we will hold off that for the next week or so until he follows up with me as an outpatient 8. DVT prophylaxis. Continue Lovenox 40 mg subcu Friday every 24 hours per 9. GI prophylaxis. Continue Protonix 40 mg once every day. 10. Observation. 11. Patient is medically stable to be discharged home Past Medical History Past Medical History: Atrial Fibrillation, Hyperlipidemia, Hypertension Additional Past Medical History / Comment(s): prostate cancer History of Any Multi-Drug Resistant Organisms: None Reported Past Surgical History: Tonsillectomy Additional Past Surgical History / Comment(s): varicocele Past Psychological History: No Psychological Hx Reported Smoking Status: Former smoker Past Alcohol Use History: None Reported Past Drug Use History: None Reported Medications and Allergies Home Medications Medication Instructions Recorded Confirmed Type Aspirin EC [Ecotrin Low Dose] 81 mg PO HS 01/24/18 11/29/22 History Niacin [Niaspan] 500 mg PO HS 11/19/20 11/29/22 History Atorvastatin [Lipitor] 20 mg PO HS 11/29/22 11/29/22 History Cholecalciferol [Vitamin D3 (25 25 mcg PO HS 11/29/22 11/29/22 History Mcg = 1000 Iu)] Losartan Potassium 50 mg PO HS 11/29/22 11/29/22 History Meloxicam [Mobic] 7.5 mg PO HS 11/29/22 11/29/22 History Multivitamins, Thera [Multivitamin 1 tab PO HS 11/29/22 11/29/22 History (formulary)] Semaglutide [Ozempic] 0.5 mg SQ TU 11/29/22 11/29/22 History Allergies Allergy/AdvReac Type Severity Reaction Status Date / Time codeine Allergy Itching Verified 11/29/22 16:30 Physical Exam Vitals: Vital Signs Temp Pulse Pulse Resp BP BP Pulse Ox 11/30/22 07:51 94 L 11/30/22 07:15 98.2 F 72 20 111/64 96 11/30/22 02:00 97.8 F 61 15 138/68 97 11/29/22 22:00 98.1 F 72 14 132/76 95 11/29/22 21:00 137/70 11/29/22 20:00 98.1 F 74 18 141/70 96 11/29/22 19:51 98.6 F 11/29/22 19:20 86 21 100/54 95 11/29/22 19:10 83 20 95 11/29/22 19:00 84 16 93 L 11/29/22 18:50 87 15 95 11/29/22 18:40 93 10 L 94 L 11/29/22 18:30 93 23 96 11/29/22 18:20 87 22 96 11/29/22 18:10 92 8 L 97 11/29/22 18:00 88 19 97 11/29/22 17:50 84 23 96 11/29/22 17:40 84 14 96 11/29/22 17:30 81 22 97 11/29/22 17:20 81 20 96 11/29/22 17:10 86 21 97 11/29/22 17:00 98 18 129/65 97 11/29/22 16:50 89 22 96 11/29/22 16:40 96 24 98 11/29/22 16:30 87 17 98 11/29/22 16:20 89 21 99 11/29/22 16:10 89 12 97 11/29/22 16:00 98 16 97 11/29/22 15:50 91 20 98 11/29/22 15:40 100 22 83 L 11/29/22 15:30 93 22 100 11/29/22 15:20 84 20 98 11/29/22 15:10 96 11/29/22 15:04 97 11/29/22 14:59 100.2 F H 88 16 152/68 97 Intake and Output 11/29/22 11/30/22 11/30/22 22:59 06:59 14:59 Other: # Voids 0 1 Weight 136.078 kg Results CBC & Chem 7: 11/30/22 06:05 11/30/22 06:05 Labs: Abnormal Lab Results - Last 24 Hours (Table) 11/29/22 11/29/22 11/29/22 Range/Units 15:49 15:49 15:49 WBC (4.50-10.00) X 10*3/uL Plt Count 120 L (150-450) k/uL Lymphocytes # 0.3 L (1.0-4.8) k/uL APTT 18.5 L (22.0-30.0) sec Anion Gap (10.00-18.00) mmol/L BUN/Creatinine Ratio (12.00-20.00) Ratio Glucose 110 H (74-99) mg/dL Calcium 8.2 L (8.4-10.2) mg/dL Phosphorus 2.2 L (2.5-4.5) mg/dL AST (14-35) U/L Total Protein (6.2-8.2) g/dL Albumin (3.8-4.9) g/dL Globulin (1.6-3.3) g/dL Urine Protein (Negative) 11/29/22 11/30/22 11/30/22 Range/Units 15:57 06:05 06:05 WBC 3.74 L (4.50-10.00) X 10*3/uL Plt Count 107 L (150-450) k/uL Lymphocytes # 0.74 L (1.0-4.8) k/uL APTT (22.0-30.0) sec Anion Gap 6.60 L (10.00-18.00) mmol/L BUN/Creatinine Ratio 21.25 H (12.00-20.00) Ratio Glucose (74-99) mg/dL Calcium 7.9 L (8.4-10.2) mg/dL Phosphorus 2.3 L (2.5-4.5) mg/dL AST 47 H (14-35) U/L Total Protein 4.9 L (6.2-8.2) g/dL Albumin 3.4 L (3.8-4.9) g/dL Globulin 1.5 L (1.6-3.3) g/dL Urine Protein Trace H (Negative)
[2022-11-30 14:49] VITALS: BP 115/68; PULSE 69; RESP 19; TEMP 99
[2022-11-30] MEDS ORDERED: MULTIVITAMINS, THERA 1 EACH TAB PO SCH (21:00)
[2022-11-30] MEDS ORDERED: NIACIN TR 500 MG CAPLET PO SCH (21:00)
[2022-11-30] MEDS ORDERED: LOSARTAN 50 MG TAB PO SCH (21:00)
[2022-11-30] MEDS ORDERED: ASPIRIN 81 MG PO SCH (21:00)
[2022-11-30] MEDS ORDERED: ATORVASTATIN 20 MG TAB PO SCH (21:00)
[2022-11-30] MEDS ORDERED: CHOLECALCIFEROL 25 MCG (1000 IU) TABLET PO SCH (21:00)
[2022-12-03] MEDS ORDERED: NON FORMULARY DRUG (Semaglutide [Ozempic] 0.25 MG/0.2 ML Each) SQ SCH (09:00)
== END 2022-11-30 15:11 | disposition home or self-care (01) ==
LOC: EC 14:52 → 6NMEDSUR 18:29
PROVIDERS: ADMIT Internal Medicine; ATTEND Internal Medicine
DX: K52.9 Noninfective gastroenteritis and colitis, unspecified (principal); I11.9 Hypertensive heart disease without heart failure; I48.0 Paroxysmal atrial fibrillation; R55 Syncope and collapse; Z85.46 Personal history of malignant neoplasm of prostate; E66.9 Obesity, unspecified; Z68.37 Body mass index [BMI] 37.0-37.9, adult; M47.816 Spondylosis without myelopathy or radiculopathy, lumbar region; Z90.49 Acquired absence of other specified parts of digestive tract; Z98.890 Other specified postprocedural states; Z87.891 Personal history of nicotine dependence; Z82.49 Family history of ischemic heart disease and other diseases of the circulatory system; Z82.61 Family history of arthritis; Z81.8 Family history of other mental and behavioral disorders; Z83.2 Family history of diseases of the blood and blood-forming organs and certain disorders involving the immune mechanism; Z79.1 Long term (current) use of non-steroidal anti-inflammatories (NSAID); Z79.82 Long term (current) use of aspirin; Z79.899 Other long term (current) drug therapy; Z88.5 Allergy status to narcotic agent
CPT/HCPCS: 96376 ×2; 96375; 96374; 99285; 36415; 94760; 93005; 83880; 80053 ×2; 83605; 83735 ×2; 84100 ×2; 84484; 85025 ×2; 85610; 85730; 81003; 87040; 87636; 71045; G0378 ×2; J2270; J2405 ×2

== ENCOUNTER 2023-02-24 16:34 | Emergency (ER) | payer MEDICARE, BC ==
[2023-02-24 17:28] VITALS: RESP 16
[2023-02-24] MEDS ORDERED: LIDOCAINE 1% INJ 10MG/ML (20 ML MDV) SQ ONE (18:28)
[2023-02-24] MEDS ORDERED: DIPH,PERTUS(ACELL)TETVAC-LF 0.5 ML VIAL IM ONE (18:28)
--- NOTE | 2023-02-24 18:28 | ED ---
General Adult HPI - General Source: patient, RN notes reviewed Mode of arrival: ambulatory Limitations: no limitations <Maisha Cristina - Last Filed: 02/24/23 18:28> <Keith Garcia - Last Filed: 02/27/23 17:27> - General Chief complaint: Wound/Laceration Stated complaint: left finger laceration Time Seen by Provider: 02/24/23 18:27 - History of Present Illness Initial comments: 72-year-old male with no significant past medical history presents to the emergency department with a chief complaint of left second digit finger laceration. Patient unsure of last tetanus vaccine dose. (Maisha Cristina) 72-year-old male presenting with chief complaint of laceration to the left second digit. States that he was using a pocket knife when he accidentally cut himself. Bleeding is well-controlled. Patient has full range of motion of the finger. He is unsure when his last tetanus was. (Keith Garcia) - Related Data Home Medications Medication Instructions Recorded Confirmed Aspirin EC [Ecotrin Low Dose] 81 mg PO HS 01/24/18 11/29/22 Niacin [Niaspan] 500 mg PO HS 11/19/20 11/29/22 Atorvastatin [Lipitor] 20 mg PO HS 11/29/22 11/29/22 Cholecalciferol [Vitamin D3 (25 25 mcg PO HS 11/29/22 11/29/22 Mcg = 1000 Iu)] Losartan Potassium 50 mg PO HS 11/29/22 11/29/22 Meloxicam [Mobic] 7.5 mg PO HS 11/29/22 11/29/22 Multivitamins, Thera [Multivitamin 1 tab PO HS 11/29/22 11/29/22 (formulary)] Semaglutide [Ozempic] 0.5 mg SQ TU 11/29/22 11/29/22 Allergies Allergy/AdvReac Type Severity Reaction Status Date / Time codeine Allergy Itching Verified 11/29/22 16:30 Review of Systems ROS Other: All systems not noted in ROS Statement are negative. <Maisha Cristina - Last Filed: 02/24/23 18:28> ROS Other: All systems not noted in ROS Statement are negative. <Keith Garcia - Last Filed: 02/27/23 17:27> ROS Statement: Those systems with pertinent positive or pertinent negative responses have been documented in the HPI. Past Medical History Past Medical History: Atrial Fibrillation, Hyperlipidemia, Hypertension Additional Past Medical History / Comment(s): prostate cancer History of Any Multi-Drug Resistant Organisms: None Reported Past Surgical History: Tonsillectomy Additional Past Surgical History / Comment(s): varicocele Past Psychological History: No Psychological Hx Reported Smoking Status: Former smoker Past Alcohol Use History: None Reported Past Drug Use History: None Reported <Maisha Cristina - Last Filed: 02/24/23 18:28> General Exam Limitations: no limitations <Maisha Cirstina - Last Filed: 02/24/23 18:28> Limitations: no limitations General appearance: alert, in no apparent distress Head exam: Present: atraumatic, normocephalic, normal inspection Eye exam: Present: normal appearance, EOMI Neck exam: Present: normal inspection, full ROM Respiratory exam: Absent: respiratory distress Neurological exam: Present: alert, oriented X3, CN II-XII intact Psychiatric exam: Present: normal affect, normal mood Expanded Type of lesion: Present: laceration (2 cm laceration to the left second digit) <Keith Garcia - Last Filed: 02/27/23 17:27> - General Exam Comments Initial Comments: Visual Physical Exam Vital signs reviewed General: Well-appearing, nontoxic, no acute distress. Head: Normocephalic, atraumatic Eyes: PERRLA, EOMI ENT: Airway patent Chest: Nonlabored breathing Skin: No visual rash, normal skin tone Neuro: Alert and oriented 3 Musculoskeletal: No gross abnormalities I performed the quick note portion of this exam, verbal signature Maisha Cristina PA-C (Maisha Cristina) Course Vital Signs 02/24/23 02/24/23 17:25 20:06 Temperature 98 F 98.6 F Pulse Rate 85 73 Respiratory 16 16 Rate Blood Pressure 147/79 103/79 O2 Sat by Pulse 98 98 Oximetry Procedures - Laceration Laceration #1 Consent Obtained: verbal consent Indication: laceration Site: hand Size (cm): 1 Description: linear Depth: simple, single layer Type of Sutures: other (exofin) Patient Tolerated Procedure: well <Keith Garcia - Last Filed: 02/27/23 17:27> Medical Decision Making <Keith Garcia - Last Filed: 02/27/23 17:27> - Medical Decision Making Was pt. sent in by a medical professional or institution (RACH Shah, BICYCLE MECHANIC, urgent care, hospital, or long-term...) When possible be specific @ -No Did you speak to anyone other than the patient for history (EMS, parent, family, police, friend...)? What history was obtained from this source @ -No Did you review nursing and triage notes (agree or disagree)? Why? @ -I reviewed and agree with nursing and triage notes Were old charts reviewed (outside hosp., previous admission, EMS record, old EKG, old radiological studies, urgent care reports/EKG's, long-term records)? Report findings @ -No old charts were reviewed Differential Diagnosis (chest pain, altered mental status, abdominal pain women, abdominal pain men, vaginal bleeding, weakness, fever, dyspnea, syncope, headache, dizziness, GI bleed, back pain, seizure, CVA, palpatations, mental health, musculoskeletal)? @ -not applicable EKG interpreted by me (3pts min.). @ -As above X-rays interpreted by me (1pt min.). @ -None done CT interpreted by me (1pt min.). @ -None done U/S interpreted by me (1pt. min.). @ -None done What testing was considered but not performed or refused? (CT, X-rays, U/S, labs)? Why? @ -None What meds were considered but not given or refused? Why? @ -None Did you discuss the management of the patient with other professionals (professionals i.e. RACH Shah, BICYCLE MECHANIC, lab, RT, psych nurse, social services designee, operating table assembler, teacher, peace officer, case packer and sealer)? Give summary @ -No Was smoking cessation discussed for >3mins.? @ -No Was critical care preformed (if so, how long)? @ -No Were there social determinants of health that impacted care today? How? (Homelessness, low income, unemployed, alcoholism, drug addiction, transportation, low edu. Level, literacy, decrease access to med. care, residential, rehab)? @ -No Was there de-escalation of care discussed even if they declined (Discuss DNR or withdrawal of care, Hospice)? DNR status @ -No What co-morbidities impacted this encounter? (DM, HTN, Smoking, COPD, CAD, Cancer, CVA, ARF, Chemo, Hep., AIDS, mental health diagnosis, sleep apnea, morbid obesity)? @ -None Was patient admitted / discharged? Hospital course, mention meds given and route, prescriptions, significant lab abnormalities, going to OR and other pertinent info. @ -72-year-old male presenting with chief complaint of 1 cm laceration to the left second digit. Bleeding is well-controlled at this time. Unsure when his last tetanus was. Tetanus is updated. The laceration is repaired using skin adhesive. He is educated on wound care and signs of infection. Follow-up with PCP. Report back to ER with any new or worsening symptoms. Discussed return parameters and answered all questions. Patient conveyed verbal understanding and agreed to the plan. I discussed this case in detail with my attending Dr. Tidwell Undiagnosed new problem with uncertain prognosis? @ -No Drug Therapy requiring intensive monitoring for toxicity (Heparin, Nitro, Insulin, Cardizem)? @ -No Were any procedures done? @ -Laceration repair Diagnosis/symptom? @ -Finger laceration Acute, or Chronic, or Acute on Chronic? @ -Acute Uncomplicated (without systemic symptoms) or Complicated (systemic symptoms)? @ -Uncomplicated Side effects of treatment? @ -No Exacerbation, Progression, or Severe Exacerbation? @ -No Poses a threat to life or bodily function? How? (Chest pain, [place], [place], pneumonia, PE, COPD, DKA, ARF, appy, cholecystitis, CVA, Diverticulitis, Homicidal, Suicidal, threat to staff... and all critical care pts) @ -No (Keith Garcia) Disposition <Maisha Cristina - Last Filed: 02/24/23 18:28> Is patient prescribed a controlled substance at d/c from ED?: No Time of Disposition: 19:54 <Keith Garcia - Last Filed: 02/27/23 17:27> Clinical Impression: Laceration Disposition: HOME SELF-CARE Condition: Good Instructions (If sedation given, give patient instructions): Finger Laceration (ED), Skin Adhesive Care (ED) Additional Instructions: Follow-up with PCP. Report back to ER with any new or worsening symptoms. Monitor for signs of infection, including but not limited to redness, swelling, pain, discharge, fever, chills. Keep the wound clean and dry and covered. Avoid fully submerging the wound. Clean with soap and water. Do not apply Neosporin or other ointment-based products as this will break down the skin adhesive. Referrals: Denise Felder MD [Primary Care Provider] - 1-2 days
[2023-02-24] MEDS ORDERED: TOPICAL SKIN ADHESIVE 1 EACH AMP TOPICAL ONE (19:33)
[2023-02-24 20:10] VITALS: BP 103/79; PULSE 73; TEMP 98.6
== END 2023-02-24 20:09 | disposition home or self-care (01) ==
LOC: EC 16:34
DX: S61.219A Laceration without foreign body of unspecified finger without damage to nail, initial encounter (principal); I48.91 Unspecified atrial fibrillation; E78.5 Hyperlipidemia, unspecified; I10 Essential (primary) hypertension; Z87.891 Personal history of nicotine dependence; Z79.899 Other long term (current) drug therapy; Z88.5 Allergy status to narcotic agent; Z79.82 Long term (current) use of aspirin; Z23 Encounter for immunization; W26.0XXA Contact with knife, initial encounter
CPT/HCPCS: 90715; 99282; 90471; 12001; J2001

== ENCOUNTER 2024-06-10 06:57 | Emergency (ER) | payer MEDICARE, BC ==
--- NOTE | 2024-06-10 07:15 | ED ---
Dizziness HPI - General Chief Complaint: Dizziness Stated Complaint: Dizzy Time Seen by Provider: 06/10/24 07:02 Source: patient, RN notes reviewed Mode of arrival: ambulatory Limitations: no limitations - History of Present Illness Initial Comments: 74-year-old male presents emergency [place] complaint of dizziness. Patient states started when he rolled over in bed. Patient states that he has room spinning dizziness when he moves. He states he has no symptoms at rest he denies any headache denies any focal weakness denies any chest pain shortness of breath palpitations states he had some dizziness in the past when he was dehydrated. He states he did have her upper respiratory infection a few weeks ago. Patient reports no fevers no recent medication changes no other complaints. - Related Data Home Medications Medication Instructions Recorded Confirmed Aspirin EC [Ecotrin Low Dose] 81 mg PO HS 01/24/18 11/29/22 Niacin [Niaspan] 500 mg PO HS 11/19/20 11/29/22 Atorvastatin [Lipitor] 20 mg PO HS 11/29/22 11/29/22 Cholecalciferol [Vitamin D3 (25 25 mcg PO HS 11/29/22 11/29/22 Mcg = 1000 Iu)] Losartan Potassium 50 mg PO HS 11/29/22 11/29/22 Meloxicam [Mobic] 7.5 mg PO HS 11/29/22 11/29/22 Multivitamins, Thera [Multivitamin 1 tab PO HS 11/29/22 11/29/22 (formulary)] Semaglutide [Ozempic] 0.5 mg SQ TU 11/29/22 11/29/22 Previous Rx's Medication Instructions Recorded Meclizine [Antivert] 25 mg PO QID #15 tab 06/10/24 Allergies Allergy/AdvReac Type Severity Reaction Status Date / Time codeine Allergy Itching Verified 06/10/24 07:00 Review of Systems ROS Statement: Those systems with pertinent positive or pertinent negative responses have been documented in the HPI. ROS Other: All systems not noted in ROS Statement are negative. Past Medical History Past Medical History: Atrial Fibrillation, Hyperlipidemia, Hypertension Additional Past Medical History / Comment(s): prostate cancer History of Any Multi-Drug Resistant Organisms: None Reported Past Surgical History: Tonsillectomy Additional Past Surgical History / Comment(s): varicocele Past Psychological History: No Psychological Hx Reported Smoking Status: Former smoker Past Alcohol Use History: None Reported Past Drug Use History: None Reported General Exam Limitations: no limitations General appearance: alert, in no apparent distress Head exam: Present: atraumatic, normocephalic, normal inspection Eye exam: Present: normal appearance, PERRL, EOMI. Absent: scleral icterus, conjunctival injection, periorbital swelling ENT exam: Present: normal exam, mucous membranes moist Neck exam: Present: normal inspection, full ROM. Absent: tenderness, meningismus, lymphadenopathy Respiratory exam: Present: normal lung sounds bilaterally. Absent: respiratory distress, wheezes, rales, rhonchi, stridor Cardiovascular Exam: Present: regular rate, normal rhythm, normal heart sounds. Absent: systolic murmur, diastolic murmur, rubs, gallop, clicks GI/Abdominal exam: Present: soft, normal bowel sounds. Absent: distended, tenderness, guarding, rebound, rigid Neurological exam: Present: alert, oriented X3, CN II-XII intact, reflexes normal. Absent: motor sensory deficit Skin exam: Present: warm, dry, intact, normal color. Absent: rash Course Vital Signs 06/10/24 06/10/24 06/10/24 06:58 07:30 08:28 Temperature 97.5 F L Pulse Rate 70 67 69 Respiratory 18 16 18 Rate Blood Pressure 155/88 138/79 136/78 O2 Sat by Pulse 96 95 95 Oximetry 06/10/24 06/10/24 06/10/24 09:15 10:00 11:17 Temperature 97.8 F Pulse Rate 64 64 67 Respiratory 17 18 17 Rate Blood Pressure 144/80 150/94 156/86 O2 Sat by Pulse 96 95 97 Oximetry EKG Findings - EKG Comments: EKG Findings:: EKG performed at 7: 06 sinus rhythm rate 72 AK 165 QRS 113 QT/QTc 414/438 - EKG Results: EKG: interpreted by ERMD Medical Decision Making - Medical Decision Making Was pt. sent in by a medical professional or institution (, PA, DEMOLITIONIST, urgent care, hospital, or half-way...) When possible be specific @ -No Did you speak to anyone other than the patient for history (EMS, parent, family, police, friend...)? What history was obtained from this source @ -No Did you review nursing and triage notes (agree or disagree)? Why? @ -I reviewed and agree with nursing and triage notes Were old charts reviewed (outside hosp., previous admission, EMS record, old EKG, old radiological studies, urgent care reports/EKG's, half-way records)? Report findings @ -No old charts were reviewed Differential Diagnosis (chest pain, altered mental status, abdominal pain women, abdominal pain men, vaginal bleeding, weakness, fever, dyspnea, syncope, headache, dizziness, GI bleed, back pain, seizure, CVA, palpatations, mental hea lth, musculoskeletal)? @ -Differential Dizziness: Benign paroxysmal positional Vertigo, Meniere's disease, otitis media, acoustic neuroma, vertebrobasilar insufficiency, cerebellar stroke, encephalitis, hypovolemic, arrhythmia, coronary artery syndrome, anemia, this is not meant to be an all-inclusive list EKG interpreted by me (3pts min.). @ -As above X-rays interpreted by me (1pt min.). @ -None done CT interpreted by me (1pt min.). @ -CT brain showing no acute intracranial hemorrhage, no mass effect no acute abnormality U/S interpreted by me (1pt. min.). @ -None done What testing was considered but not performed or refused? (CT, X-rays, U/S, labs)? Why? @ -None What meds were considered but not given or refused? Why? @ -None Did you discuss the management of the patient with other professionals (professionals i.e. , PA, DEMOLITIONIST, lab, RT, psych nurse, manager social work, waist fitter, teacher, home lending officer, special education case manager)? Give summary @ -No Was smoking cessation discussed for >3mins.? @ -No Was critical care preformed (if so, how long)? @ -No Were there social determinants of health that impacted care today? How? (Homelessness, low income, unemployed, alcoholism, drug addiction, transporta tion, low edu. Level, literacy, decrease access to med. care, snf, rehab)? @ -No Was there de-escalation of care discussed even if they declined (Discuss DNR or withdrawal of care, Hospice)? DNR status @ -No What co-morbidities impacted this encounter? (DM, HTN, Smoking, COPD, CAD, Cancer, CVA, ARF, Chemo, Hep., AIDS, mental health diagnosis, sleep apnea, morbid obesity)? @ -None Was patient admitted / discharged? Hospital course, mention meds given and route, prescriptions, significant lab abnormalities, going to OR and other pertinent info. @ -Discharge patient symptoms have resolved. He has neurologically intact with no deficits. Patient had vertigo type symptoms positional which are improved. Patient had negative workup will be discharged in stable condition. Undiagnosed new problem with uncertain prognosis? @ -No Drug Therapy requiring intensive monitoring for toxicity (Heparin, Nitro, Insulin, Cardizem)? @ -No Were any procedures done? @ -No Diagnosis/symptom? @ -[Vertigo Acute, or Chronic, or Acute on Chronic? @ -Acute Uncomplicated (without systemic symptoms) or Complicated (systemic symptoms)? @ -Uncomplicated Side effects of treatment? @ -No Exacerbation, Progression, or Severe Exacerbation? @ -No Poses a threat to life or bodily function? How? (Chest pain, [place], [place], pneumonia, PE, COPD, DKA, ARF, appy, cholecystitis, CVA, Diverticulitis, Homicidal, Suicidal, threat to staff... and all critical care pts) @ -No - Lab Data Result diagrams: 06/10/24 07:47 06/10/24 07:47 Lab Results 06/10/24 06/10/24 06/10/24 Range/Units 07:47 07:47 07:47 WBC 5.9 (3.8-10.6) k/uL RBC 5.00 (4.30-5.90) m/uL Hgb 15.2 (13.0-17.5) gm/dL Hct 44.6 (39.0-53.0) % MCV 89.2 (80.0-100.0) fL MCH 30.3 (25.0-35.0) pg MCHC 34.0 (31.0-37.0) g/dL RDW 12.5 (11.5-15.5) % Plt Count 126 L (150-450) k/uL MPV 7.1 Neutrophils % 58 % Lymphocytes % 32 % Monocytes % 6 % Eosinophils % 2 % Basophils % 0 % Neutrophils # 3.4 (1.3-7.7) k/uL Lymphocytes # 1.9 (1.0-4.8) k/uL Monocytes # 0.4 (0-1.0) k/uL Eosinophils # 0.1 (0-0.7) k/uL Basophils # 0.0 (0-0.2) k/uL Sodium 138 (137-145) mmol/L Potassium 4.0 (3.5-5.1) mmol/L Chloride 105 (98-107) mmol/L Carbon Dioxide 27 (22-30) mmol/L Anion Gap 6 mmol/L BUN 20 (9-20) mg/dL Creatinine 0.76 (0.66-1.25) mg/dL Est GFR (CKD-EPI)AfAm >90 (>60 ml/min/1.73 sqM) Est GFR (CKD-EPI)NonAf >90 (>60 ml/min/1.73 sqM) Glucose 129 H (74-99) mg/dL Calcium 8.8 (8.4-10.2) mg/dL Total Bilirubin 0.6 (0.2-1.3) mg/dL AST 26 (17-59) U/L ALT 31 (4-49) U/L Alkaline Phosphatase 60 (38-126) U/L Troponin I <0.012 (0.000-0.034) ng/mL Total Protein 6.3 (6.3-8.2) g/dL Albumin 3.9 (3.5-5.0) g/dL Disposition Clinical Impression: Benign paroxysmal positional vertigo Disposition: HOME SELF-CARE Condition: Stable Instructions (If sedation given, give patient instructions): Dizziness (ED) Additional Instructions: Please return to the Emergency Department if symptoms worsen or any other concerns. Prescriptions: Meclizine [Antivert] 25 mg PO QID #15 tab Is patient prescribed a controlled substance at d/c from ED?: No Referrals: Denise Felder MD [Primary Care Provider] - 1-2 days Time of Disposition: 10:29
[2024-06-10 07:54] LABS: Basophils % (A) 0 %; Eosinophils # (A) 0.1 k/uL (0-0.7); Eosinophils % (A) 2 %; HCT 44.6 % (39.0-53.0); HGB 15.2 gm/dL (13.0-17.5); Lymphocytes # (A) 1.9 k/uL (1.0-4.8); Lymphocytes % (A) 32 %; MCH 30.3 pg (25.0-35.0); MCV 89.2 fL (80.0-100.0); Mean Platelet Volume 7.1; Monocytes # (A) 0.4 k/uL (0-1.0); Monocytes % (A) 6 %; Neutrophils # (A) 3.4 k/uL (1.3-7.7); Neutrophils % (A) 58 %; Platelet Count 126 k/uL (150-450); RDW 12.5 % (11.5-15.5); WBC 5.9 k/uL (3.8-10.6)
[2024-06-10] MEDS: SODIUM CHLORIDE 0.9% 1,000 ML IV STA (08:06)
[2024-06-10] MEDS: ONDANSETRON 4 MG/2 ML VIAL IVP STA (08:06)
[2024-06-10] MEDS: MECLIZINE 12.5 MG TAB PO STA (08:07)
[2024-06-10 08:17] LABS: ALT 31 U/L (4-49); AST 26 U/L (17-59); African American GFR (CKD) >90 (>60 ml/min/1.73 sqM); Albumin 3.9 g/dL (3.5-5.0); Alkaline Phosphatase 60 U/L (38-126); Anion Gap 6 mmol/L; Blood Urea Nitrogen 20 mg/dL (9-20); Calcium 8.8 mg/dL (8.4-10.2); Carbon Dioxide 27 mmol/L (22-30); Chloride 105 mmol/L (98-107); Glucose 129 mg/dL (74-99); Non-African American GFR(CKD) >90 (>60 ml/min/1.73 sqM); Sodium 138 mmol/L (137-145); Total Bilirubin 0.6 mg/dL (0.2-1.3); Total Protein 6.3 g/dL (6.3-8.2)
--- NOTE | 2024-06-10 09:22 | CT ---
EXAMINATION TYPE: CT brain wo con DATE OF EXAM: 06/10/2024 9:05 AM COMPARISON: None. CLINICAL INDICATION: Male, 74 years old with history of dizziness TECHNIQUE: Examination was done in axial plane without intravenous contrast. Coronal and sagittal r econstructions performed. CT DLP: 1197.8 mGycm, Automated exposure control for dose reduction was used. FINDINGS: There is no evidence of acute intracranial hemorrhage, acute ischemic changes, mass, mass-effect, or extra-axial fluid collection. There is no effacement of cerebral sulci or basal subarachnoid cister ns. There is no hydrocephalus. There is no midline shift. Hurst-white matter distinction is preserv ed. Mild volume loss overlying the bilateral cerebral convexities. Mild lobulated mucosal thickening maxillary sinuses. Trace mucosal thickening ethmoid air cells. Mast oid air cells well pneumatized. Orbits and globes are intact. IMPRESSION: Mild cerebral atrophy. No acute intracranial abnormality seen. [facility], , 06/10/2024 9:20 AM
[2024-06-10 11:19] VITALS: PULSE 67; TEMP 97.8
[2024-06-10 11:23] VITALS: BP 156/86; RESP 17
[2024-06-10] MEDS: LIDOCAINE 4% PATCH TOPICAL ONE (11:24)
== END 2024-06-10 11:35 | disposition home or self-care (01) ==
LOC: EC 06:57
DX: H81.10 Benign paroxysmal vertigo, unspecified ear (principal); Z87.891 Personal history of nicotine dependence; Z88.5 Allergy status to narcotic agent
CPT/HCPCS: 36415; 93005; 80053; 84484; 85025; 70450; 99285; 96374; 96361; J2405

== ENCOUNTER 2024-09-20 08:39 | Emergency (ER) | payer MEDICARE, BC ==
[2024-09-20 08:42] VITALS: TEMP 98
--- NOTE | 2024-09-20 09:02 | ED ---
General Adult HPI - General Chief complaint: Back Pain/Injury Stated complaint: back pain Time Seen by Provider: 09/20/24 08:42 Source: patient Mode of arrival: EMS Limitations: no limitations - History of Present Illness Initial comments: Dictation was produced using [employer] dictation software. please excuse any grammatical, word or spelling errors. Chief Complaint: 74-year-old male with acute on chronic back pain History of Present Illness: Patient 74-year-old male presents emergency department back pain. Patient states that his back pain seems significantly different than his usual. States that it sharp radiates down to his right medial thigh. Patient states that his back pain does not usually involve radiation to the lower extremity. States that the pain is severe and patient is unable to walk. Last week patient had back injections performed by Dr. Bernal. Denies any fever, chills or night sweats. Denies any saddle anesthesia. Denies any bowel or bladder control issues. Patient reports pain at rest that significantly exacerbated with right hip movement. The ROS documented in this emergency department record has been reviewed and confirmed by me. Those systems with pertinent positive or negative responses have been documented in the HPI. All other systems are other negative and/or noncontributory. - Related Data Home Medications Medication Instructions Recorded Confirmed Aspirin EC [Ecotrin Low Dose] 81 mg PO HS 01/24/18 11/29/22 Niacin [Niaspan] 500 mg PO HS 11/19/20 11/29/22 Atorvastatin [Lipitor] 20 mg PO HS 11/29/22 11/29/22 Cholecalciferol [Vitamin D3 (25 25 mcg PO HS 11/29/22 11/29/22 Mcg = 1000 Iu)] Losartan Potassium 50 mg PO HS 11/29/22 11/29/22 Meloxicam [Mobic] 7.5 mg PO HS 11/29/22 11/29/22 Multivitamins, Thera [Multivitamin 1 tab PO HS 11/29/22 11/29/22 (formulary)] Semaglutide [Ozempic] 0.5 mg SQ TU 11/29/22 11/29/22 Previous Rx's Medication Instructions Recorded Meclizine [Antivert] 25 mg PO QID #15 tab 06/10/24 HYDROcodone/APAP 5-325MG [[place] 1 tab PO Q6HR PRN 3 Days #12 tab 09/20/24 5-325] methylPREDNISolone Dose Pack 4 mg PO DIRECTED #1 packet 09/20/24 [Medrol Dose Pack] Allergies Allergy/AdvReac Type Severity Reaction Status Date / Time codeine Allergy Itching Verified 09/20/24 08:42 Review of Systems ROS Statement: Those systems with pertinent positive or pertinent negative responses have been documented in the HPI. ROS Other: All systems not noted in ROS Statement are negative. Past Medical History Past Medical History: Atrial Fibrillation, Hyperlipidemia, Hypertension Additional Past Medical History / Comment(s): prostate cancer History of Any Multi-Drug Resistant Organisms: None Reported Past Surgical History: Tonsillectomy Additional Past Surgical History / Comment(s): varicocele Past Psychological History: No Psychological Hx Reported Smoking Status: Former smoker Past Alcohol Use History: Occasional Past Drug Use History: None Reported General Exam - General Exam Comments Initial Comments: PHYSICAL EXAM: General Impression: Alert and oriented x3, not in acute distress HEENT: Normocephalic atraumatic, extra-ocular movements intact, pupils equal and reactive to light bilaterally, mucous membranes moist. Cardiovascular: Heart regular rate and rhythm Chest: Able to complete full sentences, no retractions, no tachypnea Abdomen: abdomen soft, non-tender, non-distended, no organomegaly Musculoskeletal: Pulses present and equal in all extremities, no peripheral edema, back pain reproduced with leg raise test Motor: no focal deficits noted Neurological: CN II-XII grossly intact, no focal motor or sensory deficits noted Skin: Intact with no visualized rashes Psych: Normal affect and mood Limitations: no limitations Course Vital Signs 09/20/24 09/20/24 08:40 11:31 Temperature 98.0 F Pulse Rate 78 81 Respiratory 18 22 Rate Blood Pressure 104/71 126/72 O2 Sat by Pulse 95 96 Oximetry Medical Decision Making - Medical Decision Making Was pt. sent in by a medical professional or institution (, PA, [facility], urgent care, hospital, or penitentiary...) When possible be specific @ -No Did you speak to anyone other than the patient for history (EMS, parent, family, police, friend...)? What history was obtained from this source @ -No Did you review nursing and triage notes (agree or disagree)? Why? @ -I reviewed and agree with nursing and triage notes Were old charts reviewed (outside hosp., previous admission, EMS record, old EKG, old radiological studies, urgent care reports/EKG's, penitentiary records)? Report findings @ -No old charts were reviewed Differential Diagnosis (chest pain, altered mental status, abdominal pain women, abdominal pain men, vaginal bleeding, musculoskeletal, weakness, fever, dyspnea, syncope, headache, dizziness, GI bleed, back pain, seizure, CVA, palpatations, mental health)? @ -Differential Back Pain: Strain, zoster, cauda equina syndrome, epidural abscess, vertebral osteomyelitis, discitis, fracture, subluxation, disc herniation, DJD, spinal stenosis, dissection, AAA, pancreatitis, peptic ulcer disease, pyelonephritis, kidney stone, this is not meant to be an all-inclusive list. EKG interpreted by me (3pts min.). @ -None done X-rays interpreted by me (1pt min.). @ -None done CT interpreted by me (1pt min.). @ -Lumbar spine CT shows no acute processes U/S interpreted by me (1pt. min.). @ -None done What testing was considered but not performed or refused? (CT, X-rays, U/S, labs)? Why? @ -None What meds were considered but not given or refused? Why? @ -None Was smoking cessation discussed for >3mins.? @ -No Were there social determinants of health that impacted care today? How? (Homelessness, low income, unemployed, alcoholism, drug addiction, transportation, low edu. Level, literacy, decrease access to med. care, [place] [facility], rehab)? @ -No Was there de-escalation of care discussed even if they declined (Discuss DNR or withdrawal of care, Hospice)? DNR status @ -No What co-morbidities impacted this encounter? (DM, HTN, Smoking, COPD, CAD, Cancer, CVA, ARF, Chemo, Hep., AIDS, mental health diagnosis, sleep apnea, morbid obesity)? @ -Chronic back pain Was patient admitted / discharged? Hospital course, mention meds given and route, prescriptions, significant lab abnormalities, going to OR and other pertinent info. @ -74-year-old male presents to the emergency department with acute on chronic back pain. Vital signs stable. Does report some normal characteristics to his back pain. No high risk features. He does report however radiating symptoms to his left medial thigh area. Vital signs stable. Laboratory evaluation is unremarkable. CRP is negative. CT lumbar spine is nonacute. Patient given Decadron and analgesics with improvement of symptoms. Patient be discharged with outpatient referral to wildland fire operations specialist. Patient provided walker to go home with. Given Medrol Dosepak along with [place] prescription. Patient requires walker due to unsteady gait secondary to spinal degeneration and sclerosis Did you discuss the management of the patient with other professionals (professionals i.e. , PA, W[employer] BRUSHER, lab, RT, psych nurse, social insurance adviser, automatic pad making machine operator, teacher, chairman and chief executive officer, casework manager)? Give summary @ -No Was critical care preformed (if so, how long)? @ -No Undiagnosed new problem with uncertain prognosis? @ -No Drug Therapy requiring intensive monitoring for toxicity (Heparin, Nitro, Insulin, Cardizem)? @ -No Were any procedures done? @ -No Diagnosis/symptom? Acute, or Chronic, or Acute on Chronic? Uncomplicated (without systemic symptoms) or Complicated (systemic symptoms)? @ -Back pain Side effects of treatment? @ -No Exacerbation, Progression, or Severe Exacerbation? @ -No Poses a threat to life or bodily function? How? (Chest pain, [place], [place], pneumonia, PE, COPD, DKA, ARF, appy, cholecystitis, CVA, Diverticulitis, Homicidal, Suicidal, threat to staff... and all critical care pts) @ -yes - Lab Data Result diagrams: 09/20/24 09:13 09/20/24 09:13 Lab Results 09/20/24 09/20/24 Range/Units 09:13 09:13 WBC 8.9 (3.8-10.6) k/uL RBC 5.42 (4.30-5.90) m/uL Hgb 15.8 (13.0-17.5) gm/dL Hct 48.3 (39.0-53.0) % MCV 89.2 (80.0-100.0) fL MCH 29.3 (25.0-35.0) pg MCHC 32.8 (31.0-37.0) g/dL RDW 13.0 (11.5-15.5) % Plt Count 167 (150-450) k/uL MPV 7.9 Neutrophils % 74 % Lymphocytes % 16 % Monocytes % 7 % Eosinophils % 1 % Basophils % 1 % Neutrophils # 6.6 (1.3-7.7) k/uL Lymphocytes # 1.4 (1.0-4.8) k/uL Monocytes # 0.6 (0-1.0) k/uL Eosinophils # 0.1 (0-0.7) k/uL Basophils # 0.0 (0-0.2) k/uL Sodium 134 L (137-145) mmol/L Potassium 4.3 (3.5-5.1) mmol/L Chloride 101 (98-107) mmol/L Carbon Dioxide 26 (22-30) mmol/L Anion Gap 7 mmol/L BUN 16 (9-20) mg/dL Creatinine 0.80 (0.66-1.25) mg/dL Est GFR (CKD-EPI)AfAm >90 (>60 ml/min/1.73 sqM) Est GFR (CKD-EPI)NonAf 90 (>60 ml/min/1.73 sqM) Glucose 140 H (74-99) mg/dL Calcium 9.6 (8.4-10.2) mg/dL C-Reactive Protein <0.5 (<1.0) mg/dL Disposition Clinical Impression: Mechanical back pain Disposition: HOME SELF-CARE Condition: Fair Instructions (If sedation given, give patient instructions): Acute Low Back P ain (ED) Prescriptions: methylPREDNISolone Dose Pack [Medrol Dose Pack] 4 mg PO DIRECTED #1 packet HYDROcodone/APAP 5-325MG [[place] 5-325] 1 tab PO Q6HR PRN 3 Days #12 tab PRN Reason: Severe Pain Is patient prescribed a controlled substance at d/c from ED?: Yes If prescribed controlled substance>3 days was MAPS reviewed?: Prescribed <3 Days Referrals: Denise Felder MD [Primary Care Provider] - 1-2 days Amor Church DO [Doctor of Osteopathic Medicine] - 1-2 days Cruz Daniel DO [Doctor of Osteopathic Medicine] - 1-2 days Time of Disposition: 12:10
[2024-09-20] MEDS: MORPHINE SULFATE 4 MG/ML SYRINGE IVP PRN (09:13)
[2024-09-20 09:44] LABS: African American GFR (CKD) >90 (>60 ml/min/1.73 sqM); Anion Gap 7 mmol/L; Blood Urea Nitrogen 16 mg/dL (9-20); C Reactive Protein <0.5 mg/dL (<1.0); Calcium 9.6 mg/dL (8.4-10.2); Carbon Dioxide 26 mmol/L (22-30); Chloride 101 mmol/L (98-107); Glucose 140 mg/dL (74-99); Non-African American GFR(CKD) 90 (>60 ml/min/1.73 sqM); Potassium 4.3 mmol/L (3.5-5.1); Sodium 134 mmol/L (137-145)
[2024-09-20 09:56] LABS: Basophils % (A) 1 %; Eosinophils # (A) 0.1 k/uL (0-0.7); Eosinophils % (A) 1 %; HCT 48.3 % (39.0-53.0); HGB 15.8 gm/dL (13.0-17.5); Lymphocytes # (A) 1.4 k/uL (1.0-4.8); Lymphocytes % (A) 16 %; MCH 29.3 pg (25.0-35.0); MCHC 32.8 g/dL (31.0-37.0); MCV 89.2 fL (80.0-100.0); Mean Platelet Volume 7.9; Monocytes # (A) 0.6 k/uL (0-1.0); Monocytes % (A) 7 %; Neutrophils # (A) 6.6 k/uL (1.3-7.7); Neutrophils % (A) 74 %; Platelet Count 167 k/uL (150-450); RBC 5.42 m/uL (4.30-5.90); WBC 8.9 k/uL (3.8-10.6)
--- NOTE | 2024-09-20 10:04 | CT ---
EXAMINATION TYPE: CT lumbar spine wo con DATE OF EXAM: 09/20/2024 9:54 AM COMPARISON: 11/20/2020. CLINICAL INDICATION: Male, 74 years old with history of back pain, radiates to leg, unable to ambulat e; PHH, LOWER BACK PAIN, PAIN RADIATING DOWN RIGHT LEG, UNABLE TO AMBULATE OF THIS MORNING 5 TECHNIQUE: Multiple axial images were obtained from the midportion of T11 through the sacroiliac lokesh nts. Soft tissue and bone windows in coronal and sagittal planes were obtained and reviewed. Contrast used: mL of , (None, if empty). Oral contrast used: (None, if empty). CT DLP: 2403.6 mGycm, Automated exposure control for dose reduction was used. FINDINGS: Alignment: There are 5 lumbar type vertebral bodies within normal alignment. Bone: Degeneration changes worse at L4-L5 draining appendix with superior endplate of L5 demonstratin g Schmorl's nodes and vacuum disc phenomenon phenomenon with endplate sclerosis. Additionally there a re degeneration changes of the sacroiliac joints with osteophyte formation and sclerosis. Transitiona l vertebrae at L5 with pseudoarthrosis of the spinous processes with the sacrum. Discs: T12-L1: No spinal canal or neural foraminal stenosis is identified. L1-L2: No spinal canal or neural foraminal stenosis is identified. L2-L3: No spinal canal or neural foraminal stenosis is identified. L3-L4: No spinal canal or neural foraminal stenosis is identified. L4-L5: Facet joint arthropathy and disc bulging without significant spinal canal stenosis and mild bi lateral neural foraminal stenosis. L5-S1: No spinal canal or neural foraminal stenosis is identified. Other: Renal cortical probable cysts on the left kidney. The gallbladder surgically absent. IMPRESSION: 1. No evidence for spinal fracture. No evidence for significant spinal canal neural foraminal stenosi s. 2. Large severe degeneration at L4-L5 with and disc space narrowing with sclerosis. No significant sp inal canal or neural foraminal stenosis. 3. 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 Correl ate for transitional vertebrae pain syndrome. 4. Moderate Degeneration changes and bridging osteophyte of the sacroiliac joints. [facility], , 09/20/2024 10:02 AM
[2024-09-20] MEDS: DEXAMETHASONE SOD PHOSPHATE 10 MG/ML 1 ML VIAL IV STA (10:13)
[2024-09-20] MEDS: HYDROmorphone 1 MG/ML 1 ML SYRINGE IVP STA (11:31)
[2024-09-20 11:32] VITALS: RESP 22
[2024-09-20] MEDS: KETOROLAC 15 MG/ML 1 ML VIAL IVP STA (11:32)
[2024-09-20 13:03] VITALS: BP 130/70; PULSE 85
[2024-09-20 15:02] LABS: Erythrocyte Sedimentation Rate 11 mm/Hr (0-20)
== END 2024-09-20 13:03 | disposition home or self-care (01) ==
LOC: EC 08:39
DX: G89.29 Other chronic pain (principal); M54.9 Dorsalgia, unspecified; Z88.5 Allergy status to narcotic agent; Z87.891 Personal history of nicotine dependence
CPT/HCPCS: 36415; 80048; 85652; 85025; 86140; 72131; 99284; 96374; 96375 ×3; J2270; J1100; J1171; J1885

== ENCOUNTER → 2025-02-03 | Outpatient (CLI) | payer MEDICARE, BC ==
[2025-02-03 13:53] VITALS: BP 158/84; PULSE 73; RESP 16
--- NOTE | 2025-02-03 14:37 | P.PAINPG ---
Objective - Vital Signs Vital signs: Intake & Output 02/02/25 02/03/25 02/03/25 18:59 06:59 18:59 Weight 145.15 kg PQRS Measure Charge Sheet Comment: HISTORY OF PRESENT ILLNESS: A 74 yr old male w at side as a referral from Dr Felder presents today w severe and chronic LB_P > 1 year secondary to radiculopathy, spondylosis and facet arthropathy without myelopathy for evaluation. Pt states pain level is provoked at 6 /10 in intensity, constant, localized in the lumbar spine, predominantly axial, throbbing in character w occasional shooting pain towards the R flank. Pain is provoked by over activity. Pain is alleviated by PT x 6 wks which ended in Dec 2024, physician guided home stretches daily since Dec 2024, heat, ice, medications, topical, repositioning and rest . Oswestry axial pain score at 36. PMH: OA, aFib, Hyperlipidemia, HTN, Prostate CA PSH: Tonsillectomy/ Addenoidectomy, Cholecystectomy, Varicocoele, BL CTR SH: Former tobacco user, Occ ETOH use, No illicit drug use FH: Non contributory All: See list Medications include Mobic, ASA, BioFreeze REVIEW OF ORGAN SYSTEMS: CONSTITUTIONAL: No fevers or chills. No recent weight loss. NEUROLOGICAL: + numbness and tingling along the distal extremities. No seizure disorders or headaches. MUSCULOSKELETAL: + pain PSYCHIATRIC: Denies current depression or suicidal thoughts. Physical Examinations : Constitutional : Cooperative , not in acute distress . Neurologic : Cranial nerve II to XII intact. No focal neurological deficits. Psychiatric : alert & oriented x 3. Matching mood & appropriate affect. Judgment & insight intact. Musculoskeletal : Cervical Spine Motor strength in the deltoid and biceps: Normal right side. Normal Left side Motor strength biceps and the wrist extensors: Normal right side . Normal left side Motor strength in the triceps muscle: Normal right side. Normal left side Deep tendon reflexes: Normal at the biceps. Normal at Brachioradialis. Normal at triceps Lhermitte Sign (cervical flexion) positive Vertebral body tenderness to deep palpation over Cervical facet loading test: positive bilaterally Spurling test: positive bilaterally Neck distraction test: positive bilaterally Ele sign: positive bilaterally Shoulders Muscle bulk/ tone/ strength BL Resisted Internal Rotation positive R / positive L Resisted External Rotation positive R / positive L Empty Can Test positive R / positive L Drop Arm Test positive R / positive L Lumbar spine Motor strength lower extremities ,thigh and legs 5/5 Right side , 5/5 Left side Deep tendon reflexes : Normal Knee Jerk. Normal Ankle Jerk Vertebral body tenderness over L4 Bahena Test positive Lumbar facet Loading Test: positive Right L4-L5, L5-S1 Range of motion of the lumbar spine Flexion 30 degrees, extension 10 degrees Straight Leg Raise test: Left/ Right positive at <30 degrees Drop foot reflex: positive R / positive L Ruddy test: positive right / positive left. Severe tenderness over the Sacroiliac joint on the Right / Left sides Gaenslen test: positive bilaterally Sacral spine : Severe tenderness over the Sacroiliac joint: right side / left side Range of motion: Flexion of the lumbar spine <60 degrees Range of motion: Extension of the lumbar spine <20 degrees Gaenslen's Test positive Ruddy test: positive right side / left side Thigh Thrust Test Sacral Thrust Test Hip Joint Antalgic walking gait positive Trendelenburg positive R / positive L Imaging: CT non contrast lumbar spine from 09/20/24 reviewed Assessment/ Plan : L4-L5 radiculopathy Recommendation of MAURICE MBB L4-L5, L5-S1 #1. Risks, benefits of procedure discussed and patient verbalized understanding. Admits to anti- coagulant use or medical h istory of diabetes. Protocol for discontinuation/ continuation of medications johan procedure discussed. Minimal anesthesia including Fentanyl and Versed if clinically indicated. All questions answered. I have spent greater than 30 minutes on patient care today. Dr Saleh was available by phone for the evaluation of this patient. The time was used to review the medical records including relevant urine studies and Prescription history (MAPs), review of the available imaging, evaluation and examination of the patient, coordination of care with the medical staff and if applicable referring physicians, as well as creation of the medical record PQRS Narrative: Smoking Status Former smoker Home Medications: Ambulatory Orders Aspirin EC [Ecotrin Low Dose] 81 mg PO HS 01/24/18 Niacin [Niaspan] 500 mg PO HS 11/19/20 Atorvastatin [Lipitor] 20 mg PO HS 11/29/22 Cholecalciferol [Vitamin D3 (25 Mcg = 1000 Iu)] 25 mcg PO HS 11/29/22 Losartan Potassium 50 mg PO HS 11/29/22 Meloxicam [Mobic] 7.5 mg PO HS 11/29/22 Multivitamins, Thera [Multivitamin (formulary)] 1 tab PO HS 11/29/22 Controlled Substance Measures - Controlled Substance Measures Is patient prescribed a controlled substance at discharge?: No
== END ==
LOC: PNWHC3 13:19
PROVIDERS: ATTEND Specialist
DX: M47.26 Other spondylosis with radiculopathy, lumbar region (principal); Z88.5 Allergy status to narcotic agent; Z87.891 Personal history of nicotine dependence
CPT/HCPCS: 99202